=== PATIENT | female | born 1940 | race Hispanic/Latino ===

== ENCOUNTER 2020-06-25 19:42 | Inpatient (IN) | payer MEDICARE, OTHER ==
[~2020-06-25] VITALS: Ht 152.4 cm; Wt 74.4 kg
--- NOTE | 2020-06-25 20:01 | Emergency Department Note ---
History of Present Illnes History of Present Illness Chief Complaint: Chest Pain History of Present Illness This is a 80 year old female with CP that started this AM which had progressive ly worsened. CP radiates to l shoulder and jaw . Historian: Patient Arrival Mode: Car Onset (how long ago): day(s) (1) Severity: moderate Duration (how long): day(s) Timing of current episode: constant Progression: worsening Relieving factors: none Exacerbating factors: none Associated symptoms: Reports chest pain Treatments prior to arrival: none Past Medical/Family History Physician Review I have reviewed the patient's past medical and family history. Any updates have been documented here. Past Medical History Recent Fever: No Clinical Suspicion of Infectio: No New/Unexplained Change in Ment: No Past Medical History: Hypertension, Diabetes Social History Smoking Cessation: Never Smoker Alcohol Use: None Any Illegal Drug Use: No Review of Systems Review of Systems Constitutional: Reports diaphoresis EENTM: Reports no symptoms Cardiovascular: Reports chest pain Respiratory: Reports dyspnea Gastrointestinal: Reports nausea, Reports vomiting Genitourinary: Reports no symptoms Musculoskeletal: Reports no symptoms Integumentary: Reports no symptoms Neurological: Reports no symptoms Psychological: Reports no symptoms Endocrine: Reports no symptoms Hematological/Lymphatic: Reports no symptoms Physical Exam Related Data Allergies: Coded Allergies: Penicillins (Verified Allergy, Intermediate, 06/25/20) Triage Vital Signs Vital Signs Date Time Temp Pulse Resp B/P (MAP) Pulse Ox O2 Delivery O2 Flow Rate FiO2 06/25/20 19:59 99.6 88 20 145/85 98 Room Air Vital signs reviewed: Yes Physical Exam CONSTITUTIONAL Constitutional: Present ill appearing HENT HENT: Present normocephalic, Present atraumatic, Present oropharynx clear/moist, Present nose normal HENT L/R: Present left ext ear normal, Present right ext ear normal EYES Eyes: Reports PERRL, Reports conjunctivae normal NECK Neck: Present ROM normal PULMONARY Pulmonary: Present effort normal, Present breath sounds normal CARDIOVASCULAR Cardiovascular: Present regular rhythm, Present heart sounds normal, Present capillary refill normal, Present normal rate GASTROINTESTINAL Abdominal: Present soft, Present nontender, Present bowel sounds normal GENITOURINARY Genitourinary: Present exam deferred SKIN Skin: Present warm, Present dry MUSCULOSKELETAL Musculoskeletal: Present ROM normal NEUROLOGICAL Neurological: Present alert, Present oriented x 3, Present no gross motor or sensory deficits PSYCHOLOGICAL Psychological: Present mood/affect normal, Present judgement normal Results Laboratory Lab results reviewed: Yes Laboratory comments Laboratory Tests Test 06/25/20 23:35 06/25/20 20:11 White Blood Count 8.33 x10e3/uL (4.8-10.8) Red Blood Count 4.31 x10e6/uL (3.6-5.1) Hemoglobin 12.1 g/dL (12.0-16.0) Hematocrit 35.1 % (34.2-44.1) Mean Corpuscular Volume 81.4 fL (81-99) Mean Corpuscular Hemoglobin 28.1 pg (28-32) Mean Corpuscular Hemoglobin Concent 34.5 g/dL (31-35) Red Cell Distribution Width 12.6 % (11.7-14.4) Platelet Count 359 x10e3/uL (140-360) Neutrophils (%) (Auto) 72.6 % (38.7-80.0) Lymphocytes (%) (Auto) 18.5 % (18.0-39.1) Monocytes (%) (Auto) 7.2 % (4.4-11.3) Eosinophils (%) (Auto) 1.1 % (0.0-6.0) Basophils (%) (Auto) 0.4 % (0.0-1.0) Neutrophils # (Auto) 6.1 (2.1-6.9) Lymphocytes # (Auto) 1.5 (1.0-3.2) Monocytes # (Auto) 0.6 (0.2-0.8) Eosinophils # (Auto) 0.1 (0.0-0.4) Basophils # (Auto) 0.0 (0.0-0.1) Absolute Immature Granulocyte (auto 0.02 x10e3/uL (0-0.1) Sodium Level 122 mmol/L (136-145) Potassium Level 4.1 mmol/L (3.5-5.1) Chloride Level 85 mmol/L (98-107) Carbon Dioxide Level 25 mmol/L (22-29) Anion Gap 16.1 mmol/L (8-16) Blood Urea Nitrogen 6 mg/dL (7-26) Creatinine 0.82 mg/dL (0.57-1.11) Estimat Glomerular Filtration Rate > 60 ML/MIN (60-) BUN/Creatinine Ratio 7 (6-25) Glucose Level 135 mg/dL (74-118) Calcium Level 9.1 mg/dL (8.4-10.2) Total Bilirubin 0.4 mg/dL (0.2-1.2) Aspartate Amino Transf (AST/SGOT) 16 IU/L (5-34) Alanine Aminotransferase (ALT/SGPT) 16 IU/L (0-55) Alkaline Phosphatase 80 IU/L (40-150) Creatine Kinase 153 IU/L (29-168) Creatine Kinase MB 4.00 ng/mL (0-5.0) Troponin I < 0.001 ng/mL (0-0.300) B-Type Natriuretic Peptide 17.4 pg/mL (0-100) Total Protein 7.5 g/dL (6.5-8.1) Albumin 4.0 g/dL (3.5-5.0) Globulin 3.5 g/dL (2.3-3.5) Albumin/Globulin Ratio 1.1 (0.8-2.0) Lipase 6 U/L (8-78) Imaging Imaging results reviewed: Yes Impressions [place] [address] Patient Name: DION QUIÑONEZ MR #: [id number] : 1940 Age/Sex: 80/F Req #: [id number] Adm Physician: Ordered by: ANUSHKA GOULD DO Report #: [id number] Location: ER Room/Bed: Procedure: [id number] CT/CT ABDOMEN/PELVIS W Exam Date: 06/25/20 Exam Time: 2148 REPORT STATUS: Signed EXAM: CT Abdomen and Pelvis WITH contrast INDICATION: ^abd pain COMPARISON: None. TECHNIQUE: Abdomen and pelvis were scanned utilizing a multidetector helical scanner from the lung base to the pubic symphysis after administration of IV contrast. Coronal and sagittal reformations were obtained. Routine protocol was performed. Scan was performed when during portal venous phase. IV CONTRAST: 100 mL of Isovue 370 ORAL CONTRAST: None COMPLICATIONS: None RADIATION DOSE: Total DLP: 519.12 mGy*cm Estimated effective dose: (DLP x 0.015 x size factor) mSv CTDIvol has been reviewed. It is below the limits set by the Radiation Protocol Committee (RPC). Dose modulation, iterative reconstruction, and/or weight based adjustment of the mA/kV was utilized to reduce the radiation dose to as low as reasonably achievable. FINDINGS: LINES and TUBES: None. LOWER THORAX: Unremarkable HEPATOBILIARY: Diffuse hypoattenuation of the liver relative to the spleen with more focal fatty infiltration at the falciform ligament. No biliary ductal dilation. GALLBLADDER: No radio-opaque stones or sludge. No wall thickening. SPLEEN: No splenomegaly. PANCREAS: No focal masses or ductal dilatation. ADRENALS: No adrenal nodules KIDNEYS/URETERS: Kidneys enhance symmetrically. No hydronephrosis. No cystic or solid mass lesions. No stones. GI TRACT: No abnormal distention, wall thickening, or evidence of bowel obstruction. Diverticulosis without evidence of acute diverticulitis. Appendix is normal. PELVIC ORGANS/BLADDER: No significant abnormality. LYMPH NODES: No lymphadenopathy. VESSELS: Unremarkable. PERITONEUM / RETROPERITONEUM: No free air or fluid. BONES: Unremarkable. SOFT TISSUES: Unremarkable. IMPRESSION: 1. No acute abdominopelvic process. 2. Hepatic steatosis. 3. Colonic diverticulosis without evidence of acute diverticulitis. Signed by: Ky Chow MD on 06/25/2020 10:25 PM Dictated By: KY CHOW MD 24 Transcribed By: VARSHA on 06/25/202224 COPY TO: ANUSHKA GOULD DO~ [place] [address] Patient Name: DION QUIÑONEZ MR #: [id number] : 1940 Age/Sex: 80/F Req #: [id number] Adm Physician: Ordered by: ANUSHKA GOULD DO Report #: [id number] Location: ER Room/Bed: Procedure: [id number] DX/CHEST SINGLE (PORTABLE) Exam Date: 06/25/20 Exam Time: 2029 REPORT STATUS: Signed EXAMINATION: CHEST SINGLE (PORTABLE) INDICATION: Chest pain COMPARISON: None FINDINGS: TUBES and LINES: None. LUNGS: Normal lung volumes. Lungs are clear. No consolidations. Bibasilar atelectasis. PLEURA: No pleural effusion or pneumothorax. HEART AND MEDIASTINUM: The cardiomediastinal silhouette is within normal limits with atherosclerotic calcification of the thoracic aortic knob. BONES AND SOFT TISSUES: No acute osseous lesion. Soft tissues are unremarkable. UPPER ABDOMEN: No free air under the diaphragm. IMPRESSION: No acute thoracic radiographic abnormality. Signed by: Enio Orourke MD on 06/25/2020 9:30 PM Dictated By: ENIO OROURKE MD 29 Transcribed By: VARSHA on 06/25/202129 COPY TO: ANUSHKA GOULD DO~ Procedures 12 Lead ECG Interpretation ECG Interpretation : ECG: ECG 1 Hammer Smith: Interpreted by ED physician Date: Jun 25, 2020 Time: 20:19 Prior ECG tracings: reviewed Rhythm: sinus rhythm Rate: normal BPM: 82 QRS axis: normal ST segment flattening: I, II, III T waves normal: Yes Clinical Impression: non-specific ECG Assessment & Plan Medical Decision Making MDM 80 yof presents with CP and epigastric pain. Diff Dx : PE, PTX, ACS, Costocondritis, pancreatitis, biliary pathology Assessment & Plan Final Impression: (1) Chest pain (2) Hyponatremia Depart Disposition: ADMITTED Home Meds Reported Medications Pantoprazole Sodium* (PROTONIX) 40 Mg Tablet.dr, 40 MG PO DAILY, TAB 06/26/20 Metformin Hcl (METFORMIN HCL) 500 Mg Tablet, 1000 MG PO BID, #60 TAB 06/26/20 Losartan Potassium (LOSARTAN POTASSIUM) 100 Mg Tablet, 100 MG PO DAILY, TAB 06/26/20 Amlodipine Besylate (AMLODIPINE BESYLATE) 10 Mg Tablet, 10 MG PO DAILY, #30 TAB 06/26/20 Simvastatin (SIMVASTATIN) 40 Mg Tablet, 40 MG PO 2100, #30 TAB 06/26/20 Omeprazole (OMEPRAZOLE) 40 Mg Capsule.dr, 20 MG PO QAM 06/26/20 Ondansetron Hcl (ZOFRAN) 8 Mg Tablet, 8 MG PO Q4HR PRN for NAUSEA 06/26/20 ANUSHKA GOULD DO Jun 25, 2020 20:01
[2020-06-25] MEDS ORDERED: ASPIRIN 81 MG CHEW TAB PO ONE ×2 (20:15→22:45)
[2020-06-25 20:35] LABS: BASOPHILS % 0.4 % (0.0-1.0); EOSINOPHILS # (AUTO) 0.1 (0.0-0.4); EOSINOPHILS % 1.1 % (0.0-6.0); HEMATOCRIT 35.1 % (34.2-44.1); HEMOGLOBIN 12.1 g/dL (12.0-16.0); LYMPHOCYTES # (AUTO) 1.5 (1.0-3.2); LYMPHOCYTES % 18.5 % (18.0-39.1); MEAN CORPUSCULAR HEMOGLOBIN 28.1 pg (28-32); MEAN CORPUSCULAR HGB CONC 34.5 g/dL (31-35); MEAN CORPUSCULAR VOLUME 81.4 fL (81-99); MONOCYTES # (AUTO) 0.6 (0.2-0.8); MONOCYTES % 7.2 % (4.4-11.3); NEUTROPHILS # (AUTO) 6.1 (2.1-6.9); NEUTROPHILS % 72.6 % (38.7-80.0); PLATELET COUNT 359 x10e3/uL (140-360); RED BLOOD COUNT 4.31 x10e6/uL (3.6-5.1); RED CELL DISTRIBUTION WIDTH 12.6 % (11.7-14.4)
[2020-06-25 20:50] LABS: ALANINE AMINOTRANSFERASE 16 IU/L (0-55); ALBUMIN/GLOBULIN RATIO 1.1 (0.8-2.0); ALKALINE PHOSPHATASE 80 IU/L (40-150); ANION GAP 16.1 mmol/L (8-16); BLOOD UREA NITROGEN 6 mg/dL (7-26); BUN/CREATININE RATIO 7 (6-25); CALCIUM 9.1 mg/dL (8.4-10.2); CARBON DIOXIDE 25 mmol/L (22-29); CHLORIDE 85 mmol/L (98-107); CREATINE KINASE 153 IU/L (29-168); CREATININE, SERUM 0.82 mg/dL (0.57-1.11); EST GLOMERULAR FILTRATION RATE > 60 ML/MIN (60-); GLUCOSE 135 mg/dL (74-118); POTASSIUM 4.1 mmol/L (3.5-5.1); SODIUM 122 mmol/L (136-145)
--- NOTE | 2020-06-25 21:33 | Diagnostic Imaging Report ---
EXAMINATION: CHEST SINGLE (PORTABLE) INDICATION: Chest pain COMPARISON: None FINDINGS: TUBES and LINES: None. LUNGS: Normal lung volumes. Lungs are clear. No consolidations. Bibasilar atelectasis. PLEURA: No pleural effusion or pneumothorax. HEART AND MEDIASTINUM: The cardiomediastinal silhouette is within normal limits with atherosclerotic calcification of the thoracic aortic knob. BONES AND SOFT TISSUES: No acute osseous lesion. Soft tissues are unremarkable. UPPER ABDOMEN: No free air under the diaphragm. IMPRESSION: No acute thoracic radiographic abnormality. Signed by: Tran Hannah MD on 06/25/2020 9:30 PM
[2020-06-25] MEDS ORDERED: IOPAMIDOL 370 MG/ML 200 ML INFUS..BTL INJ ONE (22:16)
[2020-06-25] MEDS ORDERED: SODIUM CHLORIDE 0.9% 50ML 50 ML ONE (22:16)
--- NOTE | 2020-06-25 22:29 | Diagnostic Imaging Report ---
EXAM: CT Abdomen and Pelvis WITH contrast INDICATION: ^abd pain COMPARISON: None. TECHNIQUE: Abdomen and pelvis were scanned utilizing a multidetector helical scanner from the lung base to the pubic symphysis after administration of IV contrast. Coronal and sagittal reformations were obtained. Routine protocol was performed. Scan was performed when during portal venous phase. IV CONTRAST: 100 mL of Isovue 370 ORAL CONTRAST: None COMPLICATIONS: None RADIATION DOSE: Total DLP: 519.12 mGy*cm Estimated effective dose: (DLP x 0.015 x size factor) mSv CTDIvol has been reviewed. It is below the limits set by the Radiation Protocol Committee (RPC). Dose modulation, iterative reconstruction, and/or weight based adjustment of the mA/kV was utilized to reduce the radiation dose to as low as reasonably achievable. FINDINGS: LINES and TUBES: None. LOWER THORAX: Unremarkable HEPATOBILIARY: Diffuse hypoattenuation of the liver relative to the spleen with more focal fatty infiltration at the falciform ligament. No biliary ductal dilation. GALLBLADDER: No radio-opaque stones or sludge. No wall thickening. SPLEEN: No splenomegaly. PANCREAS: No focal masses or ductal dilatation. ADRENALS: No adrenal nodules KIDNEYS/URETERS: Kidneys enhance symmetrically. No hydronephrosis. No cystic or solid mass lesions. No stones. GI TRACT: No abnormal distention, wall thickening, or evidence of bowel obstruction. Diverticulosis without evidence of acute diverticulitis. Appendix is normal. PELVIC ORGANS/BLADDER: No significant abnormality. LYMPH NODES: No lymphadenopathy. VESSELS: Unremarkable. PERITONEUM / RETROPERITONEUM: No free air or fluid. BONES: Unremarkable. SOFT TISSUES: Unremarkable. IMPRESSION: 1. No acute abdominopelvic process. 2. Hepatic steatosis. 3. Colonic diverticulosis without evidence of acute diverticulitis. Signed by: Baron Monroy MD on 06/25/2020 10:25 PM
--- OUTSIDE RECORDS SUMMARY | 2020-06-25 22:37 | XMS REPORT | Clinical Summary ---
Author Author [facility] Organization [facility] Address Unknown Phone Unavailable Care Team Providers Care [employer] Supervisor Name Role Phone PCP Unavailable Allergies Comments Active Allergy Reactions Severity Noted Date Penicillin Rash, 09/05/2016 Swelling Medications End Date Status Medication Sig Dispensed Refills Start Date Active gabapentin (NEURONTIN) Take 1 Cap by 30 Cap 0 0 300 mg mouth daily 1 capsuleIndications: before a Neuropathic pain, Renal meal. colic Active ibuprofen (MOTRIN) 800 mg Take 1 tablet 30 tablet 0 tabletIndications: Pain, by mouth 6 dental every 8 hours as needed for Pain (take with food). Active Problems Problem Noted Date Mass on back 11/29/2017 Immunizations Name Administration Dates Next Due Influenza Vaccine 09/05/2016 (Deferred: Other ) Pneumococcal 13-valent 09/05/2016 (Deferred: Other ) conj 0.5 mL injection Social History Date Tobacco Use Types Packs/Day Years Used Never Smoker Drinks/Week oz/Week Comments Alcohol Use No Sex Assigned at Date Recorded Not on file Industry Job Start Date Occupation Not on file Not on file Not on file Travel End Travel History Travel Start No recent travel history available. Last Filed Vital Signs Not on file Plan of Treatment Health Maintenance Due Date Last Done Comments IMM Pneumococcal Age 65 2006 and Up IMM Influenza Seasonal 08/02/2020Aug to December (>/= 19 yrs) Results Not on fileafter 06/25/2019 Insurance Type Payer Benefit Subscriber ID Effective Phone Address Plan / Dates Group MEDICARE MEDICARE xxxxxxxxxxx 2011-P [id number] [place] [address] [employer] MEDICARE OPTIONS ROMERO xxxxxxxxxxxx 2015-P [employer] HMO DUAL resent [id number] [employer] [address] [address] [place] [address] (Work)
--- OUTSIDE RECORDS SUMMARY | 2020-06-25 22:38 | XMS REPORT | Continuity of Care Document ---
Author Author [facility] t Organization [facility] t Address [address] [place] [address] Phone Unavailable Care Team Providers Care Shell Worker Name Role Phone MD Alysia FERNÁNDEZ PCP ANUSHKA GOULD Attphys Unavailable Petra MATHIS Attphys Unavailable Jose MATTHEWS Attphys Unavailable Payers Payer Name Policy Type Policy Number Effective Date Expiration Date S sangeeta Plasencia Medicare [id number] 2015 00:00:00 [facility] [employer] [id number] 2015 00:00:00 [facility] Problems Condition Name Condition Details Condition Category Status Onset Date Resolution Date Last Treatment Date Treating Clinician Comments Source Mass on back Mass on back Disease Active 2017-11-29 00:00:00 [facility] Neuropathy Problem Active [facility] Gastritis Problem Active [facility] Abdominal pain Problem Active [facility] Hyponatremia Problem Active [facility] Diarrhea Problem Active [facility] Allergies, Adverse Reactions, Alerts Allergy Name Allergy Type Status Severity Reaction(s) Onset Date Inacti ve Date Treating Clinician Comments Source influenza virus vaccine, specific Allergy to substance Active 2020-06-23 00:00:00 [facility] FLU SHOT Allergy to substance Active 2020-06-23 00:00:00 [facility] Penicillin Allergy to substance Active Moderate 2020-05-15 00:00:0 0 [facility] Penicillin Propensity to adverse reactions to drug Active Rash, Swelling 2016-09-05 00:00:00 Julian mclaughlin Social History Social Habit Start Date Stop Date Quantity Comments Source Sex Assigned At [facility] Alcohol intake 2016-09-05 00:00:00 2016-09-05 00:00:00 Current non-drinker of alcohol (finding) [facility] Smoking Status Start Date Stop Date Source Never smoker [facility] Medications Ordered Medication Name Filled Medication Name Start Date Stop Da te Current Medication? Ordering Clinician Indication Dosage Frequency Signature (SIG) Comments Components Source Lidocaine/Menthol (Lidopatch) 1 Each ADH..PATCH Lidoca ine/Menthol (Lidopatch) 1 Each ADH..PATCH 2020-06-23 20:16:00 Yes 1 Daily [facility] Sulfamethoxazole/Trimethoprim (Bactrim Ds Tablet) 1 Ea ch TABLET Sulfamethoxazole/Trimethoprim (Bactrim Ds Tablet) 1 Each TABLET 2020-06-23 20:16:00 Yes 1 Twice A Day [facility] Tramadol Hcl (Ultram) 50 Mg TABLET Tramadol Hcl (Ultram) 50 Mg TABLET 2020-06-23 20:16:00 Yes 50 Every 6 Ho urs as needed for Mild Pain (1-3) Or Fever>100.8 [facility] ibuprofen (MOTRIN) 800 mg tablet 2016-09-05 00:00:00 Yes Pain, dental 800mg Take 1 tablet by mouth every 8 hours as needed for Pain (take with food). [facility] gabapentin (NEURONTIN) 300 mg capsule 2011-06-16 00:00:00 Yes Renal colic 300mg Take 1 Cap by mouth daily before a meal. [facility] Amlodipine Besylate (Norvasc) 10 Mg TAB Amlodipine Besylate (Norvasc) 10 Mg TAB Yes 10 Daily [facility] Clonidine Hcl Clonidine Hcl Yes 1 Bedtime [facility] Diphenhydramine Hcl (Benadryl) 25 Mg CAPSULE Diphenhyd ramine Hcl (Benadryl) 25 Mg CAPSULE Yes as needed for Allergy [facility] Loperamide Hcl (Loperamide) 2 Mg TABLET Loperamide Hcl (Erlinda ramide) 2 Mg TABLET Yes 2 Every 6 Hours as needed for Fina rrhea [facility] Loratadine Loratadine Yes 10 Daily [facility] Losartan Potassium Losartan Potassium Yes 12.5 Da elizabeth [facility] Metformin Hcl Metformin Hcl Yes 1000 [facility] Omeprazole Omeprazole Yes 20 Daily [facility] Simvastatin Simvastatin Yes 40 Bedtime [facility] Levofloxacin Levofloxacin 2020-06-16 00:00:00 No 500 Daily [facility] Apixaban (Eliquis) 2.5 Mg TABLET Apixaban (Eliquis) 2.5 Mg TABLE T 2020-06-15 00:00:00 No [facility] Metoprolol Tartrate (Lopressor) 25 Mg TAB Metoprolol T artrate (Lopressor) 25 Mg TAB 2020-06-15 00:00:00 No Daily [facility] Vital Signs Vital Name Observation Time Observation Value Comments Source Weight 2020-06-23 17:08:00 160 [lb_av] [facility] BMI (Body Mass Index) 2020-06-23 17:08:00 26.6 kg/m2 [facility] Body Temperature 2020-06-17 15:57:00 98.1 [degF] [facility] Weight 2020-06-09 21:35:00 168 [lb_av] [facility] BMI (Body Mass Index) 2020-06-09 21:35:00 32.8 kg/m2 [facility] Body Temperature 2020-05-15 01:33:00 98.4 [degF] [facility] Weight 2020-05-14 23:56:00 168 [lb_av] [facility] BMI (Body Mass Index) 2020-05-14 23:56:00 32.8 kg/m2 [facility] Procedures Procedure Date / Time Performed Performing Clinician [facility] e Computed tomography of abdomen and pelvis with contrast 00:00:00 [facility] Computed tomography of abdomen and pelvis with contrast 00:00:00 [facility] US Gallbladder 2020-06-09 00:00:00 [facility] Computed tomography of brain without radiopaque contrast 2020-05 00:00:00 [facility] Plan of Care Planned Activity Planned Date Details Comments Source Future Scheduled Test 2020-08-02 00:00:00 IMM Influenza Seas onal Aug to December (>/= 19 yrs) [code = IMM Influenza Seasonal Aug to December (>/= 19 yrs)] [facility] Future Scheduled Test 2006 00:00:00 IMM Pneumococcal A ge 65 and Up [code = IMM Pneumococcal Age 65 and Up] [facility] Instructions Back Pain [facility] Instructions Urinary Tract Infection - Women [facility] Encounters Start Date/Time End Date/Time Encounter Type Admission Type [facility] Care Department Encounter ID Source 2020-06-23 17:15:00 2020-06-23 17:15:00 Registered Emergency Room 1 MARSHALLNICKI [facility] [id number] [facility] 2020-06-14 12:00:00 2020-06-17 18:20:00 Discharged Inpatient [facility] [id number] [facility] 2020-06-09 21:49:00 2020-06-09 23:58:00 Departed Emergency Room JESUS MATTHEWS [facility] [id number] [facility] 2020-05-15 01:00:00 2020-05-15 01:45:00 Departed Emergency Room DEL [facility] [id number] [facility] 2019-08-30 10:36:00 2019-08-30 10:36:00 Emergency [facility] [id number] [facility] 2018-10-22 20:09:2018-10-22 20:09:00 Emergency E [facility] [id number] [facility] 2017-11-29 17:12:18 2017-11-29 17:12:18 Emergency [facility] [id number] [facility] Results Test Description Test Time Test Comments Results Result Comments Source CT ABDOMEN/PELVIS W 2020-06-25 22:07:00 [place] [address] Patient Name: DION QUIÑONEZ MR #: [id number] : 1940 Age/Sex: 80/F Req #: [id number] Adm Physician: Ordered by: ANUSHKA GOULD DO Report #: [id number] Location: ER Room/Bed: Procedure: [id number] CT/CT ABDOMEN/PELVIS W Exam Date: 06/25/20 Exam Time: 2148 REPORT STATUS: Signed EXAM: CT Abdomen and Pelvis WITH contrast INDICATION: abd pain COMPARISON: None. TECHNIQUE: Abdomen and pelvis were scanned utilizing a multidetector helical scanner from the lung base to the pubic symphysis after administration of IV contrast. Cor onal and sagittal reformations were obtained. Routine protocol was performed. Scan was performed when during portal venous phase. IV CONTRAST: 100 mL of Isovue 370 ORAL CONTRAST: None COMPLICATIONS: None RADIATION DOSE: Total DLP: 519.12 mGy*cm Estimated effective dose: (DLP x 0.015 x size factor) mSv CTDIvol has been reviewed. It is below the limits set by the Radiation Protocol Committee (RPC). Dose modulation, iterative reconstruction, and/or weight based adjustment of the mA/kV was utilized to reduce the radiation dose to as low as reasonably achievable. FINDINGS: LINES and TUBES: None. LOWER THORAX: Unremarkable HEPATOBILIARY: Diffuse hypoattenuation of the liver relative to the spleen with more focal fatty infiltration at the falciform ligament. No biliary ductal dilation. GALLBLADDER: No radio-opaque stones or sludge. No wall thickening. SPLEEN: No splenomegaly. PANCREAS: No focal masses or ductal dilatation. ADRENALS: No adrenal nodules KIDNEYS/URETERS: Kidneys enhance symmetrically. No hydronephrosis. No cystic or solid mass lesions. No stones. GI TRACT: No abnormal distention, wall thickening, or evidence of bowel obstruction. Diverticulosis without evidence of acute diverticulitis. Appendix is normal. PELVIC ORGANS/BLADDER: No significant abnormality. LYMPH NODES: No lymphadenopathy. VESSELS: Unremarkable. PERITONEUM / RETROPERITONEUM: No free air or fluid. BONES: Unremarkable. SOFT TISSUES: Unremarkable. IMPRESSION: 1. No acute abdominopelvic process. 2. Hepatic steatosis. 3. Colonic diverticulosis without evidence of acute diverticulitis. Signed by: Ky Monroy MD on 06/25/2020 10:25 PM Dictated By: KY MONROY MD 24 Transcribed By: VARSHA on 06/25/202224 COPY TO: ANUSHKA GOULD DO CHEST SINGLE (PORTABLE) 2020-06-25 21:22:00 [place] [address] Patient Name: DION QUIÑONEZ MR #: [id number] : 1940 Age/Sex: 80/F Req #: [id number] Adm Physician: Ordered by: ANUSHKA GOULD DO Report #: [id number] Location: ER Room/Bed: Procedure: [id number] DX/CHEST SINGLE (PORTABLE) Exam Date: 06/25/20 Exam Time: 2029 REPORT STATUS: Signed EXAMINATION: CHEST SINGLE (PORTABLE) INDICATION: Chest pain COMPARISON: None FINDINGS: TUBES and LINES: None. LUNGS: Normal lung volumes. Lungs are clear. No consolidations. Bibasilar atelectasis. PLEURA: No pleural effusion or pneumothorax. HEART AND MEDIASTINUM: The cardiomediastinal silhouette is within normal limits with atherosclerotic calcification of the thoracic aortic knob. BONES AND SOFT TISSUES: No acute osseous lesion. Soft tissues are unremarkable. UPPER ABDOMEN: No free air under the diaphragm. IMPRESSION: No acute thoracic radiographic abnormality. Signed by: Enio Orourke MD on 06/25/2020 9:30 PM Dictated By: ENIO OROURKE MD 29 Transcribed By: VARSHA on 06/25/202129 COPY TO: ANUSHKA GOULD DO CT ABDOMEN/PELVIS W 2020-06-23 19:45:00 [place] [address] Patient Name: DION QUIÑONEZ MR #: [id number] : 1940 Age/Sex: 80/F Req #: [id number] Adm Physician: Ordered by: KRISTIE MATHIS DO Report #: [id number] Location: ER Room/Bed: Procedure: [id number] CT/CT ABDOMEN/PELVIS W Exam Date: 06/23/20 Exam Time: 1852 REPORT STATUS: Signed EXAM: CT Abdomen and Pelvis WITH contrast INDICATION: Right upper quadrant pain COMPARISON: Abdominal CT 06/14/2020 TECHNIQUE: Abdomen and pelvis were scanned utilizing a multidetector helical scanner from the lung base to the pubic symphysis after administration of IV contrast. Coronal and sagittal reformations were obtained. Routine protocol was performed. Scan was performed when during portal venous phase. IV CONTRAST: 100 mL of Isovue 370 ORAL CONTRAST: None COMPLICATIONS: None RADIATION DOSE: Total DLP: 556 mGy*cm Estimated effective dose: (DLP x 0.015 x size factor) mSv CTDIvol has been reviewed. It is below the limits set by the Radiation Protocol Committee (RPC). Dose modulation, iterative reconstruction, and/or weight based adjustment of the mA/kV was utilized to reduce the radiation dose to as low as reasonably achievable. FINDINGS: LINES and TUBES: None. LOWER THORAX: Mitral annular calcifications. HEPATOBILIARY: No focal hepatic lesions. No biliary ductal dilation. GALLBLADDER: No radio-opaque stones or sludge. No wall thickening. SPLEEN: No splenomegaly. PANCREAS: No focal masses or ductal dilatation. ADRENALS: No adrenal nodules KIDNEYS/URETERS: Kidneys enhance symmetrically. No hydronephrosis. No cystic or solid mass lesions. No stones. GI TRACT: No abnormal distention, wall thickening, or evidence of bowel obstruction. Appendix is normal. Colonic diverticuli. Small sliding gastric hiatal hernia. PELVIC ORGANS/BLADDER: Hysterectomy. No adnexal masses. Urinary bladder unremarkable. LYMPH NODES: No lymphadenopathy. VESSELS: Arterial calcifications and plaques. PERITONEUM / RETROPERITONEUM: No free air or fluid. BONES: Degenerative changes. SOFT TISSUES: A 0.9 cm calcified nodule in the right breast.. IMPRESSION: 1. Small sliding gastric hiatal hernia. 2. Colonic diverticulosis without diverticulitis. 3. A 0.9 cm calcified nodule in the right breast. Recommend referral to dedicated breast imaging center. Signed by: Alan Oneal DO on 06/23/2020 7:50 PM Dictated By: ALAN ONEAL DO 49 Transcribed By: VARSAH on 06/23/201949 COPY TO: KRISTIE MATHIS DO CHEST SINGLE (PORTABLE) 2020-06-23 18:45:00 [place] [address] Patient Name: DION QUIÑONEZ MR #: [id number] : 1940 Age/Sex: 80/F Req #: [id number] Adm Physician: Ordered by: LAMONTE SANTOS MD Report #: [id number] Location: ER Room/Bed: Procedure: [id number] DX/CHEST SINGLE (PORTABLE) Exam Date: 06/23/20 Exam Time: 1755 REPORT STATUS: Signed EXAMINATION: CHEST SINGLE (PORTABLE) INDICATION: ACHY ALL OVER COMPARISON: Chest radiograph 06-14-2020. FINDINGS: TUBES and LINES: None. LUNGS: Lungs are well inflated. Mild patchy bibasilar opacities. No evidence of lobar consolidation or pulmonary edema. PLEURA: No pleural effusion or pneumothorax. HEART AND MEDIASTINUM: The cardiomediastinal silhouette is unremarkable. There are atherosclerotic calcifications within the aorta. BONES AND SOFT TISSUES: No acute osseous lesion. Soft tissues are unremarkable. UPPER ABDOMEN: No free air under the diaphragm. IMPRESSION: Mild patchy bibasilar opacities, more likely atelectasis than infection. No evidence of lobar pneumonia. Signed by: Dr. Nadja Beth MD on 06/23/2020 6:47 PM Dictated By: NADJA BETH MD 46 Transcribed By: VARSHA on 06/23/201846 COPY TO: LAMONTE SANTOS MD Blood leukocytes automated count (number/volume) 2020-06-23 17:30:00 Test Item White Blood Count (test code = 6690-2) 8.43 4.8-10.8 [facility] count (number/volume)2020-06-23 17:30:00* Test Item Value Reference Range Interpretation Comments Red Blood Count (test code = 789-8) 4.17 3.6-5.1 [facility] measurement (moles/volume)2020-06-23 17:30:00* Test Item Value Reference Range Interpretation Comments Hemoglobin (test code = 44619-1) 11.9 12.0-16.0 [facility] HospitalAutom[facility] blood hematocrit (volume fraction)2020-06-23 17:30:00* Test Item Value Reference Range Interpretation Comments Hematocrit (test code = 4544-3) 35.0 34.2-44.1 [facility] HospitalAutomated erythrocyte mean corpuscular [id number] 17:30:00* Test Item Value Reference Range Interpretation Comments Mean Corpuscular Volume (test code = 787-2) 83.9 81-99 [facility] HospitalAutom[facility] erythrocyte mean corpuscular hemoglobin (mass per erythrocyte)2020-06-23 17:30:00* Test Item Value Reference Range Interpretation Comments Mean Corpuscular Hemoglobin (test code = 785-6) 28.5 28-32 [facility] HospitalAutom[facility] erythrocyte mean corpuscular hemoglobin concentration measurement (mass/volume)2020-06-23 17:30:00* Test Item Value Reference Range Interpretation Comments Mean Corpuscular Hemoglobin Concent (test code = 786-4) 34.0 31-35 [facility] HospitalRDW EmxHe-[id number] 17:30:00* Test Item Value Reference Range Interpretation Comments Red Cell Distribution Width (test code = 40219-3) 12.7 11.7 -14.4 [facility] HospitalAutom[facility] blood platelet count (count/volume)2020-06-23 17:30:00* Test Item Value Reference Range Interpretation Comments Platelet Count (test code = 777-3) 341 140-360 [facility] HospitalAutomated blood segmented neutrophil count as percentage of total [id number] 17:30:00* Test Item Value Reference Range Interpretation Comments Neutrophils (%) (Auto) (test code = 76413-9) 70.7 38.7-80.0 [facility] HospitalAutomated blood lymphocyte count as percentage ot total [id number] 17:30:00* Test Item Value Reference Range Interpretation Comments Lymphocytes (%) (Auto) (test code = 736-9) 19.7 18.0-39.1 [facility] HospitalAutomated blood monocyte count as percentage of total ohcoksjggr0223-80-76 17:30:00* Test Item Value Reference Range Interpretation Comments Monocytes (%) (Auto) (test code = 5905-5) 6.9 4.4-11.3 [facility] HospitalAutomated blood eosinophil count as percentage of total betrtnesnc6385-92-09 17:30:00* Test Item Value Reference Range Interpretation Comments Eosinophils (%) (Auto) (test code = 713-8) 1.4 0.0-6.0 [facility] HospitalAutatrium healthed blood basophil count as percentage of total vtpxduuhfj1373-79-68 17:30:00* Test Item Value Reference Range Interpretation Comments Basophils (%) (Auto) (test code = 706-2) 0.5 0.0-1.0 [facility] HospitalFluoroscopic procedure less than one hour [id number] 17:30:00* Test Item Value Reference Range Interpretation Comments IM GRANULOCYTES % (test code = IM GRANULOCYTES %) 0.8 0.0- 1.0 [facility] HospitalAutatrium healthed blood neutrophil count 2020-06-23 17:30:00* Test Item Value Reference Range Interpretation Comments Neutrophils # (Auto) (test code = 751-8) 6.0 2.1-6.9 [facility]Blood lymphocytes count (number/volume) 2020-06-23 17:30:00* Test Item Value Reference Range Interpretation Comments Lymphocytes # (Auto) (test code = 02408-9) 1.7 1.0-3.2 [facility] HospitalBlood monocytes automated count (number/volume)2020-06-23 17:30:00* Test Item Value Reference Range Interpretation Comments Monocytes # (Auto) (test code = 742-7) 0.6 0.2-0.8 [facility] HospitalAutomated blood eosinophil count 2020-06-23 17:30:00* Test Item Value Reference Range Interpretation Comments Eosinophils # (Auto) (test code = 711-2) 0.1 0.0-0.4 [facility] (count/volume)2020-06-23 17:30:00* Test Item Value Reference Range Interpretation Comments Basophils # (Auto) (test code = 704-7) 0.0 0.0-0.1 [facility] HospitalFluoroscopic procedure less than one hour [id number] 17:30:00* Test Item Value Reference Range Interpretation Comments Absolute Immature Granulocyte (auto (cristobal t code = Absolute Immature Granulocyte (auto) 0.07 0-0.1 [facility] HospitalProthrombin time (PT) in platelet poor plasma by coagulation [id number] 17:30:00* Test Item Value Reference Range Interpretation Comments Prothrombin Time (test code = 5902-2) 12.7 11.9-14.5 [facility] HospitalINR in Platelet poor plasma by Coagulation [id number] 17:30:00* Test Item Value Reference Range Interpretation Comments Prothromb Time International Ratio (test code = 6301-6) 0.91 Oral Anticoagulant Therapy INR Values:1. Low Intensity Therapy 1.5 - 2.02 . Moderate Intensity Therapy 2.0 - 3.03. High Intensity Therapy(1) 2.5 - 3. 54. High Intensity Therapy(2) 3.0 - 4.05. Panic Value INR > 5.0 [facility] HospitalActivated partial thromboplastin time (aPTT) in platelet poor plasma by coagulation [id number] 17:30:00* Test Item Value Reference Range Interpretation Comments Activated Partial Thromboplast Time (test code = 00625-5) 29.9 23.8-35.5 [facility] HospitalUrine color [id number] 17:30:00* Test Item Value Reference Range Interpretation Comments Urine Color (test code = 5778-6) COLORLESS YELLOW [facility] HospitalUrine [id number] 17:30:00* Test Item Value Reference Range Interpretation Comments Urine Clarity (test code = 96120-9) CLEAR CLEAR [facility] by Test strip 2020-06-23 17:30:00* Test Item Value Reference Range Interpretation Comments Urine Specific [place] (test code = 5811-5) 1.020 1.010-1.02 5 [facility] HospitalUrine pH measurement by automated test [id number] 17:30:00* Test Item Value Reference Range Interpretation Comments Urine pH (test code = 53234-4) 7.5 5-7 [facility] HospitalUrine leukocyte esterase detection by lzjzbrxy4616-62-19 17:30:00* Test Item Value Reference Range Interpretation Comments Urine Leukocyte Esterase (test code = 5799-2) NEGATIVE NEGATIVE [facility] HospitalUrine nitrite mmzhgltmb8687-39-39 17:30:00* Test Item Value Reference Range Interpretation Comments Urine Nitrite (test code = 77986-8) NEGATIVE NEGATIVE [facility] HospitalUrine protein measurement by test strip (mass/volume)2020-06-23 17:30:00* Test Item Value Reference Range Interpretation Comments Urine Protein (test code = 5804-0) NEGATIVE NEGATIVE [facility] HospitalUrine glucose fiisnkxdf3127-33-87 17:30:00* Test Item Value Reference Range Interpretation Comments Urine Glucose (UA) (test code = 2349-9) NEGATIVE NEGATIVE [facility] HospitalUrine ketones detection by automated test [id number] 17:30:00* Test Item Value Reference Range Interpretation Comments Urine Ketones (test code = 45384-7) NEGATIVE NEGATIVE [facility] HospitalUrine urobilinogen measurement by test strip (mass/volume)2020-06-23 17:30:00* Test Item Value Reference Range Interpretation Comments Urine Urobilinogen (test code = 77663-0) 0.2 0.2-1 [facility] HospitalUrine total bilirubin measurement (mass/volume)2020-06-23 17:30:00* Test Item Value Reference Range Interpretation Comments Urine Bilirubin (test code = 1978-6) NEGATIVE NEGATIVE [facility] HospitalUrine erythrocytes [id number] 17:30:00* Test Item Value Reference Range Interpretation Comments Urine Blood (test code = 50187-4) SMALL NEGATIVE [facility] HospitalAutomated urine sediment leukocyte count by microscopy (number/high power field)2020-06-23 17:30:00* Test Item Value Reference Range Interpretation Comments Urine WBC (test code = 5821-4) 11-20 0-5 [facility] HospitalErythrocytes detection in urine sediment by light [id number] 17:30:00* Test Item Value Reference Range Interpretation Comments Urine RBC (test code = 70826-5) 11-20 0-5 [facility] HospitalBacteria detection in urine sediment by light [id number] 17:30:00* Test Item Value Reference Range Interpretation Comments Urine Bacteria (test code = 78397-4) MODERATE NONE [facility] HospitalEpithelial cells detection in urine sediment by light [id number] 17:30:00* Test Item Value Reference Range Interpretation Comments Urine Epithelial Cells (test code = 15741-1) MODERATE NONE [facility]um or plasma sodium measurement (moles/volume)2020-06-23 17:30:00* Test Item Value Reference Range Interpretation Comments Sodium Level (test code = 2951-2) 126 136-145 [facility]erum or plasma potassium measurement (moles/volume)2020-06-23 17:30:00* Test Item Value Reference Range Interpretation Comments Potassium Level (test code = 2823-3) 4.3 3.5-5.1 [facility] chloride [facility] (moles/volume)2020-06-23 17:30:00* Test Item Value Reference Range Interpretation Comments Chloride Level (test code = 2075-0) 87 98-107 [facility] carbon dioxide, total measurement (moles/volume)2020-06-23 17:30:00* Test Item Value Reference Range Interpretation Comments Carbon Dioxide Level (test code = 2028-9) 26 22-29 [facility] anion qhb4766-84-98 17:30:00* Test Item Value Reference Range Interpretation Comments Anion Gap (test code = 41879-9) 17.3 8-16 [facility] urea nitrogen measurement (mass/volume)2020-06-23 17:30:00* Test Item Value Reference Range Interpretation Comments Blood Urea Nitrogen (test code = 3094-0) 8 7-26 [facility] creatinine measurement (mass/volume)2020-06-23 17:30:00* Test Item Value Reference Range Interpretation Comments Creatinine (test code = 2160-0) 0.84 0.57-1.11 [facility] urea nitrogen/creatinine mass ktioa3573-03-46 17:30:00* Test Item Value Reference Range Interpretation Comments BUN/Creatinine Ratio (test code = 3097-3) 10 6-25 [facility] HospitalEstimated glomerular filtration rate (GFR) gjkwdmdglizpi7713-42-76 17:30:00* Test Item Value Reference Range Interpretation Comments Estimat Glomerular Filtration Rate (test code = 980212450) > 60 >60 Ranges were taken from the National Kidney Disease Education Program and the [facility] literature.Reference ranges:60 or greater: Lxmrai99-35 ( for 3 consecutive months): Chronic kidney disease 15 or less: Kidney failureMem[facility] HospitalGlucose epxjargzykh4330-40-93 17:30:00* Test Item Value Reference Range Interpretation Comments Glucose Level (test code = LWM3454) 108 74-118 [facility] calcium measurement (mass/volume)2020-06-23 17:30:00* Test Item Value Reference Range Interpretation Comments Calcium Level (test code = 72656-0) 9.3 8.4-10.2 [facility] magnesium measurement (mass/volume)2020-06-23 17:30:00* Test Item Value Reference Range Interpretation Comments Magnesium Level (test code = 26530-2) 1.8 1.3-2.1 [facility] total bilirubin measurement (mass/volume)2020-06-23 17:30:00* Test Item Value Reference Range Interpretation Comments Total Bilirubin (test code = 1975-2) 0.3 0.2-1.2 [facility] HospitalFluoroscopic procedure less than one hour gikvugui5110-04-77 17:30:00* Test Item Value Reference Range Interpretation Comments Aspartate Amino Transf (AST/SGOT) (test code = Aspartate Amino Transf (AST/SGOT)) 17 5-34 [facility] alanine aminotransferase measurement (enzymatic activity/volume)2020-06-23 17:30:00* Test Item Value Reference Range Interpretation Comments Alanine Aminotransferase (ALT/SGPT) (test code = 1742-6) 17 0-55 [facility] protein measurement (mass/volume)2020-06-23 17:30:00* Test Item Value Reference Range Interpretation Comments Total Protein (test code = 2885-2) 7.8 6.5-8.1 [facility] albumin measurement (mass/volume)2020-06-23 17:30:00* Test Item Value Reference Range Interpretation Comments Albumin (test code = 1751-7) 4.1 3.5-5.0 [facility] HospitalPlasma globulin measurement (mass/volume) 2020-06-23 17:30:00* Test Item Value Reference Range Interpretation Comments Globulin (test code = 78536-8) 3.7 2.3-3.5 [facility] albumin/globulin mass dqpbf1821-82-90 17:30:00* Test Item Value Reference Range Interpretation Comments Albumin/Globulin Ratio (test code = 1759-0) 1.1 0.8-2.0 [facility] alkaline phosphatase measurement (enzymatic activity/volume)2020-06-23 17:30:00* Test Item Value Reference Range Interpretation Comments Alkaline Phosphatase (test code = 6768-6) 94 40-150 [facility] creatine kinase measurement (enzymatic activity/volume)2020-06-23 17:30:00* Test Item Value Reference Range Interpretation Comments Creatine Kinase (test code = 2157-6) 125 29-168 [facility] plasma creatine kinase MB measurement (mass/volume)2020-06-23 17:30:00* Test Item Value Reference Range Interpretation Comments Creatine Kinase MB (test code = 61216-3) 2.80 0-5.0 [facility] HospitalTroponin I measurement by highly sensitive enzyme tuqbisbetro0131-87-41 17:30:00* Test Item Value Reference Range Interpretation Comments Troponin I (test code = 70625-1) 0.001 0-0.300 [facility] amylase measurement (enzymatic activity/volume)2020-06-23 17:30:00* Test Item Value Reference Range Interpretation Comments Amylase Level (test code = 1798-8) 144 25-125 [facility] lipase measurement (enzymatic activity/volume)2020-06-23 17:30:00* Test Item Value Reference Range Interpretation Comments Lipase (test code = 3040-3) 38 8-78 [facility] HospitalFluoroscopic procedure less than one hour sggpmvts1256-02-33 17:30:00* Test Item Value Reference Range Interpretation Comments Coronavirus (PCR) (test code = Coronavirus (PCR)) NOT DETECTED NOTD ETECTED SARS-COV2/RT-PCR CEPHEIDResults are for the detection of SARS-COV-2 RNA. The CULLEN S-COV-2 RNA is generally detectable in nasopharyngeal swab specimens during the acute phase of infection. Positive results are indicitive of active infection wi SARS-COV-2; clinical correlation with patient history and other diagnostic in formation is necessary to determine patient infection status. Positive results d o not rule out bacterial infection or co-infection with other viruses. The agent detected may not be the definite cause of the disease.The limit of detection for this assay is 250 copies/mLThe SARS-CoV-2 test is a rapid, real-time RT-PCR test intended for the qualitative detection of nucleic acid from SARS-CoV-2 in kanu opharyngeal swab specimen collected from individuals suspected of COVID-19 by eir healthcare provider. This test has not been Food and Drug Administration (FD A) cleared or approved and has been authorized by FDA under an Emergency Use Aut horization (EUA). This EUA will be effective until the declaration that circumst ances exist justifying the authorization of the emergency use of in vitro diagno stic test for detection and or diagnosis of COVID-19 is terminated under section 564(b) of the Act, or the the EUA is revoked under 564(g) of the ACT. SARS-COV2 /RT-PCR CEPHEIDResults are for the detection of SARS-COV-2 RNA. The SARS-COV-2 R NA is generally detectable in nasopharyngeal swab specimens during the acute pha se of infection. Positive results are indicitive of active infection with SARS-C OV-2; clinical correlation with patient history and other diagnostic information is necessary to determine patient infection status. Positive results do not rule out bacterial infection or co-infection with other viruses. The agent detected may not be the definite cause of the disease.The limit of detection for this as say is 250 copies/mLThe SARS-CoV-2 test is a rapid, real-time RT-PCR test intend ed for the qualitative detection of nucleic acid from SARS-CoV-2 in nasopharynge al swab specimen collected from individuals suspected of COVID-19 by their [facility]. This test has not been Food and Drug Administration (FDA) cleare d or approved and has been authorized by FDA under an Emergency Use Authorizatio n (EUA). This EUA will be effective until the declaration that circumstances exi st justifying the authorization of the emergency use of in vitro diagnostic test for detection and or diagnosis of COVID-19 is terminated under section 564(b) of the Act, or the the EUA is revoked under 564(g) of the ACT.[facility] HospitalCapillary blood glucose measurement by glucometer (mass/volume)2020-06-17 15:19:00* Test Item Value Reference Range Interpretation Comments Bedside Glucose (test code = 22848-0) 110 70-120 Meter ID: [id number] Regional Hospitaltool lactoferrin duiuhtjza3082-75-46 21:33:00* Test Item Value Reference Range Interpretation Comments Stool Lactoferrin (LAB) (test code = 19795-2) POSITIVE NEGATIVE Testing on stool aspirate specimens is outside field sales consultant claims since specime n type not validated on this assay.[facility] Clostridium difficile A and B toxin esozy3062-06-91 21:33:00* Test Item Value Reference Range Interpretation Comments Clostridium Difficile Toxin A & B (test code = 155568788) NEGATIVE NEGATIVE Testing on stool aspirate specimens is outside field sales consultant claims since specime n type not validated on this assay.[facility] HospitalCT ABDOMEN/PELVIS [id number] 11:51:00 [facility] [address] [place] [id number] Patient Name: DION QUIÑONEZ MR #: [id number] : 1940 [facility] 80[id number] Req #: [id number] Adm Physician: Ordered by: KRISTIE MATHIS DO Report #: [id number] Location: ER Room/Bed: Procedure: [id number] CT/CT ABDOMEN /PELVIS W Exam Date: 06/14/20 Exam Time: 1120 REPORT STATUS: Signed EXAM: CT Abdomen and Pelvis WITH intravenous contrast INDICATION: Diarrhea COMPARISO N: None. TECHNIQUE: Abdomen and pelvis were scanned utilizing a multidetect or helical scanner from the lung base to the pubic symphysis after administrat ion of IV contrast. Coronal and sagittal reformations were obtained. Routine p rotocol was performed. Scan was performed during portal venous phase. IV CONTRAST: 100mL of Isovue 370 ORAL CONTRAST: Water RADIATION DOSE: Total DLP: 699 mGy*cm Dose modulation, iterative reconstruction, and/or w eight based adjustment of the mA/kV was utilized to reduce the radiation dose to as low as reasonably achievable. FINDINGS: LOWER THORAX: Normal. HEPATOBILIARY: Diffuse hepatic steatosis. No focal liver lesion. No biliary ductal dilation. Unremarkable gallbladder. SPLEEN: No splenomegaly. P ANCREAS: No focal masses or ductal dilatation. ADRENALS: No adrenal nodules . KIDNEYS/URETERS: No hydronephrosis, stones, or solid mass lesions. PELVIC ORGANS/BLADDER: Hysterectomy. PERITONEUM / RETROPERITONEUM: No free air or free fluid. LYMPH NODES: No lymphadenopathy. VESSELS: Moderate atherosclerot ic calcifications of the nonaneurysmal abdominal aorta and major branches. GI TRACT: Diverticulosis without CT evidence of diverticulitis. No abnormal bowel thickening. No bowel obstruction. Normal appendix. BONES AND SOFT TIS SUES: No acute osseous injury. No suspicious lytic or blastic lesions. Mild de generative changes of the visualized spine. IMPRESSION: No acute finding s in the abdomen or pelvis. Diffuse hepatic steatosis. Diverticulosis without CT evidence of diverticulitis. Signed by: Cristina Echevarria MD on 06/14/20 11:53 AM Dictated By: CRISTINA ECHEVARRIA MD 1153 Transcribed By: VARSHA on 06/14/20 1153 COPY TO: KRISTIE MATHIS DO CHEST SINGLE (PORTABLE)2020-06-14 11:27:00 [place] [address] Patient Name: DION QUIÑONEZ MR #: [id number] : 1940 Age/Sex: 80/F Req #: [id number] Adm Physician: Ordered by: KRISTIE MATHIS DO Report #: [id number] Location: ER Room/Bed: Procedure: [id number] DX/CHEST SING LE (PORTABLE) Exam Date: 06/14/20 Exam Time: 1041 REPORT STATUS: Signed EXAMINATION: CHEST SINGLE (PORTABLE) INDICATION: Diarrhea COMPARISON: None FINDINGS: LINES/TUBES:None LUNGS:The lungs are well-inflated. No focal consolidation or pulmonary edema. PLEURA:No pleural effusion or pn eumothorax. MEDIASTINUM:The cardiomediastinal silhouette appears normal in size and shape. Atherosclerotic calcifications of the thoracic aorta. BON ES/SOFT TISSUES:No acute osseous injury. ABDOMEN:No free air under the diap hragm. IMPRESSION: No focal pneumonia or pulmonary edema. Signed by: Cristina Echevarria MD on 06/14/2020 11:28 AM Dictated By: CRISTINA ECHEVARRIA MD Filomena ctronically Signed By: CRISTINA ECHEVARRIA MD on 06/14/201127 Transcribed By: VARSHA ramírez 06/14/201127 COPY TO: KRISTIE MATHIS DO GALLBLADDER 2020-06-09 22:52:00 [place] [address] Patient Name: DION QUIÑONEZ MR #: [id number] : 1940 Age/Sex: 79/F Req #: [id number] Adm Physician: Ordered by: JESUS MATTHEWS MD Report #: [id number] Location: ER Room/Bed: Procedure: [id number] US/US GAL LBLADDER Exam Date: 06/09/20 Exam Time: 2227 REPORT STATUS: Signed EXAM: Right Upper Quadrant Ultrasound INDICATION: RUQ PAIN COMPARISON: None. TECHNIQUE: Transverse and longitudinal images of the right upper abdomen were obtained. FINDINGS: Liver: Size: 15.4 cm in the right mid clavicular line, normal Appearance: Normal echogenicity, smooth contour Mass: No focal masses Gallbladder: Stones/Sludge: None Wall: 0.26 cm Appearance: No pericholecystic fluid or hydrops. S onographic Rowe's Sign: Negative Bile Ducts: Intrahepatic Ducts: N o dilatation Extrahepatic Ducts: Common bile duct measures 0.4 cm, no dil atation Pancreas: Partially visualized due to overlying bowel gas. Right Kidney: Size: 9.5 cm Echogenicity: Normal Pare nchymal thickness: Normal Collecting system: No hydronephrosis St ones: None Cyst/Mass: None Vessels: Aorta: Visualized portion s are normal Inferior Vena Cava: Visualized portions are normal Ma in portal vein: Normal size and flow direction. Free Fluid: No ascit es or pleural effusion IMPRESSION: 1. Normal exam. No cholelithiasi s or evidence of acute cholecystitis. 2. Limited evaluation of the pancreas du e to overlying bowel gas. Signed by: Ky Monroy MD on 06/09/2020 10:57 PM Dictated By: KY MONROY MD 56 Transcribed By: VARSHA on 06/09/202256 COPY TO: JESUS BOWMAN MD Blood leukocytes automated count (number/volume) 2020-06-09 22:05:00* Test Item Value Reference Range Interpretation Comments White Blood Count (test code = 6690-2) 8.91 4.8-10.8 [facility] HospitalBlood erythrocytes automated count (number/volume)2020-06-09 22:05:00* Test Item Value Reference Range Interpretation Comments Red Blood Count (test code = 789-8) 4.43 3.6-5.1 [facility] HospitalBlood hemoglobin measurement (moles/volume)2020-06-09 22:05:00* Test Item Value Reference Range Interpretation Comments Hemoglobin (test code = 92571-9) 12.3 12.0-16.0 [facility] HospitalAutomated blood hematocrit (volume fraction)2020-06-09 22:05:00* Test Item Value Reference Range Interpretation Comments Hematocrit (test code = 4544-3) 37.5 34.2-44.1 [facility] HospitalAutomated erythrocyte mean corpuscular lferlf4630-86-70 22:05:00* Test Item Value Reference Range Interpretation Comments Mean Corpuscular Volume (test code = 787-2) 84.7 81-99 [facility] HospitalAutomated erythrocyte mean corpuscular hemoglobin (mass per erythrocyte)2020-06-09 22:05:00* Test Item Value Reference Range Interpretation Comments Mean Corpuscular Hemoglobin (test code = 785-6) 27.8 28-32 [facility] HospitalAutomated erythrocyte mean corpuscular hemoglobin concentration measurement (mass/volume)2020-06-09 22:05:00* Test Item Value Reference Range Interpretation Comments Mean Corpuscular Hemoglobin Concent (test code = 786-4) 32.8 31-35 [facility] HospitalRDW CenHj-Sbr8919-60-08 22:05:00* Test Item Value Reference Range Interpretation Comments Red Cell Distribution Width (test code = 63062-4) 13.3 11.7 -14.4 [facility] HospitalAutomated blood platelet count (count/volume)2020-06-09 22:05:00* Test Item Value Reference Range Interpretation Comments Platelet Count (test code = 777-3) 364 140-360 [facility] HospitalAutomated blood segmented neutrophil count as percentage of total mlzdqjlkpj6754-35-50 22:05:00* Test Item Value Reference Range Interpretation Comments Neutrophils (%) (Auto) (test code = 90733-4) 63.6 38.7-80.0 [facility] HospitalAutomated blood lymphocyte count as percentage ot total vryobxnyrx4509-04-64 22:05:00* Test Item Value Reference Range Interpretation Comments Lymphocytes (%) (Auto) (test code = 736-9) 23.6 18.0-39.1 [facility] HospitalAutomated blood monocyte count as percentage of total ackashodpr0607-67-47 22:05:00* Test Item Value Reference Range Interpretation Comments Monocytes (%) (Auto) (test code = 5905-5) 7.4 4.4-11.3 [facility] HospitalAutomated blood eosinophil count as percentage of total vavrgkpyer3933-78-79 22:05:00* Test Item Value Reference Range Interpretation Comments Eosinophils (%) (Auto) (test code = 713-8) 4.3 0.0-6.0 [facility] HospitalAutomated blood basophil count as percentage of total hmbclxvpro6935-29-22 22:05:00* Test Item Value Reference Range Interpretation Comments Basophils (%) (Auto) (test code = 706-2) 0.9 0.0-1.0 [facility] HospitalFluoroscopic procedure less than one hour uftmajrp6529-99-79 22:05:00* Test Item Value Reference Range Interpretation Comments IM GRANULOCYTES % (test code = IM GRANULOCYTES %) 0.2 0.0- 1.0 [facility] HospitalAutomated blood neutrophil count 2020-06-09 22:05:00* Test Item Value Reference Range Interpretation Comments Neutrophils # (Auto) (test code = 751-8) 5.7 2.1-6.9 [facility] HospitalBlood lymphocytes count (number/volume) 2020-06-09 22:05:00* Test Item Value Reference Range Interpretation Comments Lymphocytes # (Auto) (test code = 74238-4) 2.1 1.0-3.2 [facility] HospitalBlmadison hospital monocytes automated count (number/volume)2020-06-09 22:05:00* Test Item Value Reference Range Interpretation Comments Monocytes # (Auto) (test code = 742-7) 0.7 0.2-0.8 [facility] HospitalAutomated blood eosinophil count 2020-06-09 22:05:00* Test Item Value Reference Range Interpretation Comments Eosinophils # (Auto) (test code = 711-2) 0.4 0.0-0.4 [facility] HospitalAutomated blood basophil count (count/volume)2020-06-09 22:05:00* Test Item Value Reference Range Interpretation Comments Basophils # (Auto) (test code = 704-7) 0.1 0.0-0.1 [facility] HospitalFluoroscopic procedure less than one hour qitdablr9313-89-19 22:05:00* Test Item Value Reference Range Interpretation Comments Absolute Immature Granulocyte (auto (cristobal t code = Absolute Immature Granulocyte (auto) 0.02 0-0.1 [facility] sodium measurement (moles/volume)2020-06-09 22:05:00* Test Item Value Reference Range Interpretation Comments Sodium Level (test code = 2951-2) 133 136-145 [facility] plasma potassium measurement (moles/volume)2020-06-09 22:05:00* Test Item Value Reference Range Interpretation Comments Potassium Level (test code = 2823-3) 4.3 3.5-5.1 [facility] chloride measurement (moles/volume)2020-06-09 22:05:00* Test Item Value Reference Range Interpretation Comments Chloride Level (test code = 2075-0) 98 98-107 [facility] plasma carbon dioxide, total measurement (moles/volume)2020-06-09 22:05:00* Test Item Value Reference Range Interpretation Comments Carbon Dioxide Level (test code = 2028-9) 24 22-29 [facility] plasma anion fzt7664-22-11 22:05:00* Test Item Value Reference Range Interpretation Comments Anion Gap (test code = 63555-3) 15.3 8-16 [facility] urea nitrogen measurement (mass/volume)2020-06-09 22:05:00* Test Item Value Reference Range Interpretation Comments Blood Urea Nitrogen (test code = 3094-0) 12 7- [facility] plasma creatinine measurement (mass/volume)2020-06-09 22:05:00* Test Item Value Reference Range Interpretation Comments Creatinine (test code = 2160-0) 1.04 0.57-1.11 [facility] plasma urea nitrogen/creatinine mass vtrrf0520-74-44 22:05:00* Test Item Value Reference Range Interpretation Comments BUN/Creatinine Ratio (test code = 3097-3) 12 6- [facility] HospitalEstimated glomerular filtration rate (GFR) jtduafpqrwkwq1121-31-58 22:05:00* Test Item Value Reference Range Interpretation Comments Estimat Glomerular Filtration Rate (test code = 995586322) 51 >60 Ranges were taken from the National Kidney Disease Education Program and the [facility] Kidney Foundation literature.Reference ranges:60 or greater: Vveiew00-27 ( for 3 consecutive months): Chronic kidney disease 15 or less: Kidney failureMemorial Hermann Greater Heights HospitalGlucose rbwmhshphmv3848-14-73 22:05:00* Test Item Value Reference Range Interpretation Comments Glucose Level (test code = YQE0345) 117 74-118 [facility] plasma calcium measurement (mass/volume)2020-06-09 22:05:00* Test Item Value Reference Range Interpretation Comments Calcium Level (test code = 85045-2) 9.6 8.4-10.2 [facility] plasma total bilirubin measurement (mass/volume)2020-06-09 22:05:00* Test Item Value Reference Range Interpretation Comments Total Bilirubin (test code = 1975-2) 0.4 0.2-1.2 [facility] HospitalFluoroscopic procedure less than one hour sptnorxe7970-61-29 22:05:00* Test Item Value Reference Range Interpretation Comments Aspartate Amino Transf (AST/SGOT) (test code = Aspartate Amino Transf (AST/SGOT)) 17 5-34 [facility]er[facility] or plasma alanine aminotransferase measurement (enzymatic activity/volume)2020-06-09 22:05:00* Test Item Value Reference Range Interpretation Comments Alanine Aminotransferase (ALT/SGPT) (test code = 1742-6) 20 0-55 [facility]er[facility] plasma protein measurement (mass/volume)2020-06-09 22:05:00* Test Item Value Reference Range Interpretation Comments Total Protein (test code = 2885-2) 8.1 6.5-8.1 [facility]er[facility] plasma albumin measurement (mass/volume)2020-06-09 22:05:00* Test Item Value Reference Range Interpretation Comments Albumin (test code = 1751-7) 4.2 3.5-5.0 [facility] HospitalPlasma globulin measurement (mass/volume) 2020-06-09 22:05:00* Test Item Value Reference Range Interpretation Comments Globulin (test code = 30045-1) 3.9 2.3-3.5 [facility]er[facility] plasma albumin/globulin mass troim5191-89-79 22:05:00* Test Item Value Reference Range Interpretation Comments Albumin/Globulin Ratio (test code = 1759-0) 1.1 0.8-2.0 [facility]er[facility] or plasma alkaline phosphatase measurement (enzymatic activity/volume)2020-06-09 22:05:00* Test Item Value Reference Range Interpretation Comments Alkaline Phosphatase (test code = 6768-6) 97 40-150 [facility]er[facility] or plasma creatine kinase measurement (enzymatic activity/volume)2020-06-09 22:05:00* Test Item Value Reference Range Interpretation Comments Creatine Kinase (test code = 2157-6) 223 29-168 [facility]er[facility] or plasma creatine kinase MB measurement (mass/volume)2020-06-09 22:05:00* Test Item Value Reference Range Interpretation Comments Creatine Kinase MB (test code = 23323-7) 5.50 0-5.0 [facility] HospitalTroponin I measurement by highly sensitive enzyme pxltmkwlmpr6510-00-37 22:05:00* Test Item Value Reference Range Interpretation Comments Troponin I (test code = 45458-3) < 0.001 0-0.300 [facility]er[facility] or plasma amylase measurement (enzymatic activity/volume)2020-06-09 22:05:00* Test Item Value Reference Range Interpretation Comments Amylase Level (test code = 1798-8) 133 25-125 [facility]er[facility] or plasma lipase measurement (enzymatic activity/volume)2020-06-09 22:05:00* Test Item Value Reference Range Interpretation Comments Lipase (test code = 3040-3) 24 8-78 [facility] HospitalUrine color svlcetgwdfajr0487-66-14 21:49:00* Test Item Value Reference Range Interpretation Comments Urine Color (test code = 5778-6) YELLOW YELLOW [facility] HospitalUrine mjrvskb8817-03-76 21:49:00* Test Item Value Reference Range Interpretation Comments Urine Clarity (test code = 73944-8) SL CLOUDY CLE[facility] Test [facility] 2020-06-09 21:49:00* Test Item Value Reference Range Interpretation Comments Urine Specific [place] (test code = 5811-5) 1.010 1.010-1.02 5 [facility] measurement by automated test caopv0385-74-18 21:49:00* Test Item Value Reference Range Interpretation Comments Urine pH (test code = 83935-1) 5.5 5-7 [facility] leukocyte esterase detection by jxjcsrld2044-08-41 21:49:00* Test Item Value Reference Range Interpretation Comments Urine Leukocyte Esterase (test code = 5799-2) NEGATIVE NEGATIVE [facility] HospitalU[facility] nitrite kkmrxvgew1019-44-85 21:49:00* Test Item Value Reference Range Interpretation Comments Urine Nitrite (test code = 60625-7) NEGATIVE NEGATIVE [facility] protein measurement by test strip (mass/volume)2020-06-09 21:49:00* Test Item Value Reference Range Interpretation Comments Urine Protein (test code = 5804-0) TRACE NEGATIVE [facility] glucose zioxjspwt1187-04-41 21:49:00* Test Item Value Reference Range Interpretation Comments Urine Glucose (UA) (test code = 2349-9) NEGATIVE NEGATIVE [facility] HospitalU[facility] ketones detection by automated test rclfw3814-99-43 21:49:00* Test Item Value Reference Range Interpretation Comments Urine Ketones (test code = 95298-9) NEGATIVE NEGATIVE [facility] HospitalUrine urobilinogen measurement by test strip (mass/volume)2020-06-09 21:49:00* Test Item Value Reference Range Interpretation Comments Urine Urobilinogen (test code = 43196-3) 0.2 0.2-1 [facility] total bilirubin measurement (mass/volume)2020-06-09 21:49:00* Test Item Value Reference Range Interpretation Comments Urine Bilirubin (test code = 1978-6) NEGATIVE NEGATIVE [facility] HospitalU[facility] erythrocytes pdbphntby1732-71-59 21:49:00* Test Item Value Reference Range Interpretation Comments Urine Blood (test code = 45542-5) MODERATE NEGATIVE [facility] HospitalAutomated urine sediment leukocyte count by microscopy (number/high power field)2020-06-09 21:49:00* Test Item Value Reference Range Interpretation Comments Urine WBC (test code = 5821-4) 0-5 0-5 [facility] HospitalErythrocytes detection in urine sediment by light zdxmlqgkhf5871-77-25 21:49:00* Test Item Value Reference Range Interpretation Comments Urine RBC (test code = 14632-7) 6-10 0-5 [facility] HospitalBacteria detection in urine sediment by light adjuwdkumf7847-80-82 21:49:00* Test Item Value Reference Range Interpretation Comments Urine Bacteria (test code = 61668-7) [facility]W [facility]Epit[facility] cells detection in urine sediment by light bzcoowdhie1482-50-78 21:49:00* Test Item Value Reference Range Interpretation Comments Urine Epithelial Cells (test code = 88166-1) FEW NONE [facility] HospitalMucus detection in urine sediment by light cclnndzwbt1004-01-86 21:49:00* Test Item Value Reference Range Interpretation Comments Urine Mucus (test code = 8247-9) FEW RARE [facility] HospitalMucus detection in urine sediment by light jexdarpodr5990-99-18 21:49:00* Test Item Value Reference Range Interpretation Comments Urine Mucus (test code = 8247-9) [facility] [id number] 00:53:00 [facility] [address] [address] Patient Name: DION QUIÑONEZ MR #: [id number] : 1940 Age/Sex: 79/F Req #: [id number] Adm Physician: Ordered by: KRISTIE MATHIS DO Report #: [id number] Location: ER Room/Bed: Procedure: [id number] CT/CT BRAIN W O Exam Date: 05/15/20 Exam Time: 0030 REPORT STATUS: Signed History:left weakness Comparison studies:None Technique: Axial images were obtained from the sk ull base to the vertex. Coronal and sagittal images reconstructed from the axi al data. Intravenous contrast: None Findings: Scalp/skull: No abnorm alities. Extra-axial spaces: No masses. No fluid collections. Brain s ulci: Mildly prominent. Ventricles: Mild compensatory dilatation. No hydroceph alus. Parenchyma: Subtle bilateral supratentorial white matter hypodensi ties are small vessel microvascular changes. A 4mm dystrophic calcification in the left putamen is not associated with surrounding edema. No masses, hem orrhage, acute or chronic vascular insults. Sellar/suprasellar region: No a bnormalities. Craniocervical junction: Patent foramen magnum. No Chiari one m alformation. Incidental findings: Subtle atherosclerotic calcifications i n the carotid siphons Non obstructing retention cyst in the left sphenoid sin us. Impression: 1. No acute abnormalities. 2. Specifically, no ac rosebud vascular insults or acute hemorrhage. Chronic findings: * Mild gener alized volume loss. * Mild parietal white matter microvascular ischemic manzanares es. Signed by: Dr. Pedro Barillas M.D. on 05/15/2020 1:08 AM Dict ated By: PEDRO BARILLAS MD 7 COPY TO: BOWEN MATHIS ICA, DO Blood leukocytes automated count (number/volume)2020-05-15 00:02:00* Test Item Value Reference Range Interpretation Comments White Blood Count (test code = 6690-2) 10.13 4.8-10.8 [facility]Blood erythrocytes automated count (number/volume)2020-05-15 00:02:00* Test Item Value Reference Range Interpretation Comments Red Blood Count (test code = 789-8) 4.00 3.6-5.1 [facility] HospitalBlood hemoglobin measurement (moles/volume)2020-05-15 00:02:00* Test Item Value Reference Range Interpretation Comments Hemoglobin (test code = 95295-4) 11.1 12.0-16.0 [facility] HospitalAutomated blood hematocrit (volume fraction)2020-05-15 00:02:00* Test Item Value Reference Range Interpretation Comments Hematocrit (test code = 4544-3) 34.2 34.2-44.1 [facility] HospitalAutomated erythrocyte mean corpuscular zjdrzp1690-17-53 00:02:00* Test Item Value Reference Range Interpretation Comments Mean Corpuscular Volume (test code = 787-2) 85.5 81-99 [facility] HospitalAutomated erythrocyte mean corpuscular hemoglobin (mass per erythrocyte)2020-05-15 00:02:00* Test Item Value Reference Range Interpretation Comments Mean Corpuscular Hemoglobin (test code = 785-6) 27.8 28-32 [facility] HospitalAutomated erythrocyte mean corpuscular hemoglobin concentration measurement (mass/volume)2020-05-15 00:02:00* Test Item Value Reference Range Interpretation Comments Mean Corpuscular Hemoglobin Concent (test code = 786-4) 32.5 31-35 [facility] HospitalRDW JocUk-Use6294-17-14 00:02:00* Test Item Value Reference Range Interpretation Comments Red Cell Distribution Width (test code = 13465-3) 13.3 11.7 -14.4 [facility] HospitalAutomated blood platelet count (count/volume)2020-05-15 00:02:00* Test Item Value Reference Range Interpretation Comments Platelet Count (test code = 777-3) 344 140-360 [facility] HospitalAutomated blood segmented neutrophil count as percentage of total sqfhgkgdxr8098-80-09 00:02:00* Test Item Value Reference Range Interpretation Comments Neutrophils (%) (Auto) (test code = 05406-8) 61.0 38.7-80.0 [facility] HospitalAutomated blood lymphocyte count as percentage ot total mhqtzhrqkp7747-08-16 00:02:00* Test Item Value Reference Range Interpretation Comments Lymphocytes (%) (Auto) (test code = 736-9) 24.5 18.0-39.1 [facility] HospitalAutomated blood monocyte count as percentage of total bqnbzexwob1848-50-93 00:02:00* Test Item Value Reference Range Interpretation Comments Monocytes (%) (Auto) (test code = 5905-5) 5.7 4.4-11.3 [facility] HospitalAutomated blood eosinophil count as percentage of total eeicypafzj7354-09-97 00:02:00* Test Item Value Reference Range Interpretation Comments Eosinophils (%) (Auto) (test code = 713-8) 8.1 0.0-6.0 [facility] HospitalAutomated blood basophil count as percentage of total oufcjnbgct4113-70-05 00:02:00* Test Item Value Reference Range Interpretation Comments Basophils (%) (Auto) (test code = 706-2) 0.4 0.0-1.0 [facility] HospitalFluoroscopic procedure less than one hour aecfbjej0228-94-35 00:02:00* Test Item Value Reference Range Interpretation Comments IM GRANULOCYTES % (test code = IM GRANULOCYTES %) 0.3 0.0- 1.0 [facility] HospitalAutomated blood neutrophil count 2020-05-15 00:02:00* Test Item Value Reference Range Interpretation Comments Neutrophils # (Auto) (test code = 751-8) 6.2 2.1-6.9 [facility] HospitalBlood lymphocytes count (number/volume) 2020-05-15 00:02:00* Test Item Value Reference Range Interpretation Comments Lymphocytes # (Auto) (test code = 05399-5) 2.5 1.0-3.2 [facility] HospitalBlood monocytes automated count (number/volume)2020-05-15 00:02:00* Test Item Value Reference Range Interpretation Comments Monocytes # (Auto) (test code = 742-7) 0.6 0.2-0.8 [facility] HospitalAutomated blood eosinophil count 2020-05-15 00:02:00* Test Item Value Reference Range Interpretation Comments Eosinophils # (Auto) (test code = 711-2) 0.8 0.0-0.4 [facility] HospitalAutomated blood basophil count (count/volume)2020-05-15 00:02:00* Test Item Value Reference Range Interpretation Comments Basophils # (Auto) (test code = 704-7) 0.0 0.0-0.1 [facility] HospitalFluoroscopic procedure less than one hour ofmvwnab4040-92-85 00:02:00* Test Item Value Reference Range Interpretation Comments Absolute Immature Granulocyte (auto (cristobal t code = Absolute Immature Granulocyte (auto) 0.03 0-0.1 [facility] or plasma sodium measurement (moles/volume)2020-05-15 00:02:00* Test Item Value Reference Range Interpretation Comments Sodium Level (test code = 2951-2) 137 136-145 [facility]erum or plasma potassium measurement (moles/volume)2020-05-15 00:02:00* Test Item Value Reference Range Interpretation Comments Potassium Level (test code = 2823-3) 4.3 3.5-5.1 [facility] plasma chloride measurement (moles/volume)2020-05-15 00:02:00* Test Item Value Reference Range Interpretation Comments Chloride Level (test code = 2075-0) 100 98-107 [facility]er[facility] or plasma carbon dioxide, total measurement (moles/volume)2020-05-15 00:02:00* Test Item Value Reference Range Interpretation Comments Carbon Dioxide Level (test code = 2028-9) 25 22-29 [facility] or plasma anion gjo3382-39-15 00:02:00* Test Item Value Reference Range Interpretation Comments Anion Gap (test code = 57050-1) 16.3 8-16 [facility] plasma urea nitrogen measurement (mass/volume)2020-05-15 00:02:00* Test Item Value Reference Range Interpretation Comments Blood Urea Nitrogen (test code = 3094-0) 15 7-26 [facility] or plasma creatinine measurement (mass/volume)2020-05-15 00:02:00* Test Item Value Reference Range Interpretation Comments Creatinine (test code = 2160-0) 0.80 0.57-1.11 [facility]erum or plasma urea nitrogen/creatinine mass yrojc8141-75-30 00:02:00* Test Item Value Reference Range Interpretation Comments BUN/Creatinine Ratio (test code = 3097-3) 19 6-25 [facility] HospitalEstimated glomerular filtration rate (GFR) rtatyezrdonku5719-10-86 00:02:00* Test Item Value Reference Range Interpretation Comments Estimat Glomerular Filtration Rate (test code = 918825654) > 60 >60 Ranges were taken from the National Kidney Disease Education Program and the [facility] literature.Reference ranges:60 or greater: Atnizq70-43 ( for 3 consecutive months): Chronic kidney disease 15 or less: Kidney failureMemorial Hermann Greater Heights HospitalGlucose sylbewfhpkn8196-35-65 00:02:00* Test Item Value Reference Range Interpretation Comments Glucose Level (test code = HGX4887) 110 74-118 [facility]erum or plasma calcium measurement (mass/volume)2020-05-15 00:02:00* Test Item Value Reference Range Interpretation Comments Calcium Level (test code = 57657-2) 9.5 8.4-10.2 [facility]er[facility] or plasma total bilirubin measurement (mass/volume)2020-05-15 00:02:00* Test Item Value Reference Range Interpretation Comments Total Bilirubin (test code = 1975-2) 0.2 0.2-1.2 [facility] HospitalFluoroscopic procedure less than one hour hjqipvee6161-12-83 00:02:00* Test Item Value Reference Range Interpretation Comments Aspartate Amino Transf (AST/SGOT) (test code = Aspartate Amino Transf (AST/SGOT)) 12 5-34 [facility]erum or plasma alanine aminotransferase measurement (enzymatic activity/volume)2020-05-15 00:02:00* Test Item Value Reference Range Interpretation Comments Alanine Aminotransferase (ALT/SGPT) (test code = 1742-6) 15 0-55 [facility]erum or plasma protein measurement (mass/volume)2020-05-15 00:02:00* Test Item Value Reference Range Interpretation Comments Total Protein (test code = 2885-2) 7.5 6.5-8.1 [facility]erum or plasma albumin measurement (mass/volume)2020-05-15 00:02:00* Test Item Value Reference Range Interpretation Comments Albumin (test code = 1751-7) 3.8 3.5-5.0 [facility] HospitalPlasma globulin measurement (mass/volume) 2020-05-15 00:02:00* Test Item Value Reference Range Interpretation Comments Globulin (test code = 13029-4) 3.7 2.3-3.5 [facility] or plasma albumin/globulin mass qrhyh2172-30-23 00:02:00* Test Item Value Reference Range Interpretation Comments Albumin/Globulin Ratio (test code = 1759-0) 1.0 0.8-2.0 [facility]er[facility] or plasma alkaline phosphatase measurement (enzymatic activity/volume)2020-05-15 00:02:00* Test Item Value Reference Range Interpretation Comments Alkaline Phosphatase (test code = 6768-6) 83 40-150 [facility]erum or plasma creatine kinase measurement (enzymatic activity/volume)2020-05-15 00:02:00* Test Item Value Reference Range Interpretation Comments Creatine Kinase (test code = 2157-6) 105 29-168 [facility]erum or plasma creatine kinase MB measurement (mass/volume)2020-05-15 00:02:00* Test Item Value Reference Range Interpretation Comments Creatine Kinase MB (test code = 64893-5) 2.20 0-5.0 [facility] HospitalTroponin I measurement by highly sensitive enzyme jziddhuhzcm5177-75-02 00:02:00* Test Item Value Reference Range Interpretation Comments Troponin I (test code = 07912-8) < 0.001 0-0.300 [facility]
[2020-06-25] MEDS ORDERED: SODIUM CHLORIDE 0.9% 1000ML 1,000 ML IV SCH (22:45)
--- OUTSIDE RECORDS SUMMARY | 2020-06-25 23:06 | XMS REPORT | Clinical Summary ---
Author Author [facility] Organization [facility] Address Unknown Phone Unavailable Care Team Providers Care Box Packer Name Role Phone PCP Unavailable Allergies Comments [...] / Dates Group MEDICARE MEDICARE xxxxxxxxxxx 2011-P [phone] PART A & B resent [id number] [place] [address] [employer] MED[employer]ARE OPTIONS [employer] xxxxxxxxxxxx 2015-P MCA HMO DUAL resent [id number] OPTION MMP [address] [address] [place] [address] (Work)
--- OUTSIDE RECORDS SUMMARY | 2020-06-25 23:07 | XMS REPORT | Continuity of Care Document ---
Author Author [facility] t Organization [facility] t Address [address] [place] [address] Phone Unavailable Care Team Providers Care Email Marketing Executive Name Role Phone MD Alysia FERNÁNDEZ PCP ANUSHKA GOULD Attphys Unavailable Petra MATHIS Attphys Unavailable Jose MATTHEWS Attphys Unavailable Payers Payer Name Policy Type Policy Number Effective Date Expiration Date S sangeeta Plasencia Medicare [id number] 2015 00:00:00 [facility] Plasencia [employer] [id number] 2015 00:00:00 [facility] Problems Condition Name Condition Details Condition Category Status Onset Date Resolution Date Last Treatment Date Treating Clinician Comments Source Mass on back Mass on back Disease Active 2017-11-29 00:00:00 [facility] Neuropathy Problem Active [facility] Gastritis Problem Active [facility] Abdominal pain Problem Active [facility] Hyponatremia Problem Active [facility] Diarrhea Problem Active [facility] Allergies, Adverse Reactions, Alerts Allergy Name Allergy Type Status Severity Reaction(s) Onset Date Inacti ve Date Treating Clinician Comments Source influenza virus vaccine, specific Allergy to substance Active 2020-06-23 00:00:00 [facility] FLU SHOT Allergy to substance Active 2020-06-23 00:00:00 [facility] Penicillin Allergy to substance Active Moderate 2020-05-15 00:00:0 0 [facility] Penicillin Propensity to adverse reactions to drug Active Rash, Swelling 2016-09-05 00:00:00 Julian mclaughlin Social History Social Habit Start Date Stop Date Quantity Comments Source Sex Assigned At [facility] Alcohol intake 2016-09-05 00:00:00 2016-09-05 00:00:00 Current non-drinker of alcohol (finding) [facility] Smoking Status Start Date Stop Date Source Never smoker [facility] Medications Ordered Medication Name Filled Medication Name Start Date Stop Da te Current Medication? Ordering Clinician Indication Dosage Frequency Signature (SIG) Comments Components Source Lidocaine/Menthol (Lidopatch) 1 Each ADH..PATCH Lidoca ine/Menthol (Lidopatch) 1 Each ADH..PATCH 2020-06-23 20:16:00 Yes 1 Daily [facility] Sulfamethoxazole/Trimethoprim (Bactrim Ds Tablet) 1 Ea ch TABLET Sulfamethoxazole/Trimethoprim (Bactrim Ds Tablet) 1 Each TABLET 2020-06-23 20:16:00 Yes 1 Twice A Day [facility] Tramadol Hcl (Ultram) 50 Mg TABLET Tramadol Hcl (Ultram) 50 Mg TABLET 2020-06-23 20:16:00 Yes 50 Every 6 Ho urs as needed for Mild Pain (1-3) Or Fever>100.8 [facility] ibuprofen (MOTRIN) 800 mg tablet 2016-09-05 00:00:00 Yes Pain, dental 800mg Take 1 tablet by mouth every 8 hours as needed for Pain (take with food). [facility] gabapentin (NEURONTIN) 300 mg capsule 2011-06-16 00:00:00 Yes Renal colic 300mg Take 1 Cap by mouth daily before a meal. [facility] Amlodipine Besylate (Norvasc) 10 Mg TAB Amlodipine Besylate (Norvasc) 10 Mg TAB Yes 10 Daily [facility] Clonidine Hcl Clonidine Hcl Yes 1 Bedtime [facility] Diphenhydramine Hcl (Benadryl) 25 Mg CAPSULE Diphenhyd ramine Hcl (Benadryl) 25 Mg CAPSULE Yes as needed for Allergy [facility] Loperamide Hcl (Loperamide) 2 Mg TABLET Loperamide Hcl (Erlinda ramide) 2 Mg TABLET Yes 2 Every 6 Hours as needed for Fina rrhea [facility] Loratadine Loratadine Yes 10 Daily [facility] Losartan Potassium Losartan Potassium Yes 12.5 Da elizabeth [facility] Metformin Hcl Metformin Hcl Yes 1000 [facility] Omeprazole Omeprazole Yes 20 Daily [facility] Simvastatin Simvastatin Yes 40 Bedtime [facility] Levofloxacin Levofloxacin 2020-06-16 00:00:00 No 500 Daily [facility] Apixaban (Eliquis) 2.5 Mg TABLET Apixaban (Eliquis) 2.5 Mg TABLE T 2020-06-15 00:00:00 No [facility] Metoprolol Tartrate (Lopressor) 25 Mg TAB Metoprolol T artrate (Lopressor) 25 Mg TAB 2020-06-15 00:00:00 No Daily [facility] Vital Signs Vital Name Observation Time Observation Value Comments Source Weight 2020-06-23 17:08:00 160 [lb_av] [facility] BMI (Body Mass Index) 2020-06-23 17:08:00 26.6 kg/m2 [facility] Body Temperature 2020-06-17 15:57:00 98.1 [degF] [facility] Weight 2020-06-09 21:35:00 168 [lb_av] [facility] BMI (Body Mass Index) 2020-06-09 21:35:00 32.8 kg/m2 [facility] Body Temperature 2020-05-15 01:33:00 98.4 [degF] [facility] Weight 2020-05-14 23:56:00 168 [lb_av] [facility] BMI (Body Mass Index) 2020-05-14 23:56:00 32.8 kg/m2 [facility] Procedures Procedure Date / Time Performed Performing Clinician [facility] e Computed tomography of abdomen and pelvis with contrast 00:00:00 [facility] Computed tomography of abdomen and pelvis with contrast 00:00:00 [facility] US Gallbladder 2020-06-09 00:00:00 [facility] Computed tomography of brain without radiopaque contrast 2020-05 00:00:00 [facility] Plan of Care Planned Activity Planned Date Details Comments Source Future Scheduled Test 2020-08-02 00:00:00 IMM Influenza Seas onal Aug to December (>/= 19 yrs) [code = IMM Influenza Seasonal Aug to December (>/= 19 yrs)] [facility] Future Scheduled Test 2006 00:00:00 IMM Pneumococcal A ge 65 and Up [code = IMM Pneumococcal Age 65 and Up] [facility] Instructions Back Pain [facility] Instructions Urinary Tract Infection - Women [facility] Encounters Start Date/Time End Date/Time Encounter Type Admission Type [facility] Care Department Encounter ID Source 2020-06-23 17:15:00 2020-06-23 17:15:00 Registered Emergency Room 1 MARSHALLNICKI [facility] [id number] [facility] 2020-06-14 12:00:00 2020-06-17 18:20:00 Discharged Inpatient [facility] [id number] [facility] 2020-06-09 21:49:00 2020-06-09 23:58:00 Departed Emergency Room JESUS MATTHEWS [facility] [id number] [facility] 2020-05-15 01:00:00 2020-05-15 01:45:00 Departed Emergency Room DEL [facility] [id number] [facility] 2019-08-30 10:36:00 2019-08-30 10:36:00 Emergency E [facility] [id number] [facility] 2018-10-22 20:09:2018-10-22 20:09:00 Emergency E [facility] [id number] [facility] 2017-11-29 17:12:18 2017-11-29 17:12:18 Emergency [facility] [id number] [facility] Results Test Description Test Time Test Comments Results Result Comments Source CT ABDOMEN/PELVIS W 2020-06-25 22:07:00 [place] [address] Patient Name: DION QUIÑONEZ MR #: [id number] : 1940 Age/Sex: 80/F Req #: [id number] Adm Physician: Ordered by: ANUSHKA GOULD DO Report #: [id number] Location: ER Room/Bed: Procedure: [id number] CT/CT ABDOMEN/PELVIS W Exam Date: 06/25/20 Exam [...] GOULD DO CHEST SINGLE (PORTABLE) 2020-06-25 21:22:00 [place] [address] Patient Name: DION QUIÑONEZ MR #: [id number] : 1940 Age/Sex: 80/F Req #: [id number] Adm Physician: Ordered by: ANUSHKA GOULD DO Report #: [id number] Location: ER Room/Bed: Procedure: [id number] DX/CHEST SINGLE (PORTABLE) Exam Date: 06/25/20 Exam [...] Transcribed By: VARSHA on 06/25/202129 COPY TO: NAUSHKA GOULD DO CT ABDOMEN/PELVIS W 2020-06-23 19:45:00 [place] [address] Patient Name: DION QUIÑONEZ MR #: [id number] : 1940 Age/Sex: 80/F Req #: [id number] Adm Physician: Ordered by: KRISTIE MATHIS DO Report #: [id number] Location: ER Room/Bed: Procedure: [id number] CT/CT ABDOMEN/PELVIS W Exam Date: 06/23/20 Exam [...] By: ALAN ONEAL DO 49 Transcribed By: VARSHA on 06/23/201949 COPY TO: KRISTIE MATHIS DO CHEST SINGLE (PORTABLE) 2020-06-23 18:45:00 [place] [address] Patient Name: DION QUIÑONEZ MR #: [id number] : 1940 Age/Sex: 80/F Req #: [id number] Adm Physician: Ordered by: LAMONTE SANTOS MD Report #: [id number] Location: ER Room/Bed: Procedure: [id number] DX/CHEST SINGLE (PORTABLE) Exam Date: 06/23/20 Exam [...] Count (test code = 6690-2) 8.43 4.8-10.8 [facility] automated count (number/volume)2020-06-23 17:30:00* Test Item Value Reference Range Interpretation Comments Red Blood Count (test code = 789-8) 4.17 3.6-5.1 [facility] hemoglobin measurement (moles/volume)2020-06-23 17:30:00* Test Item Value Reference Range Interpretation Comments Hemoglobin (test code = 65246-6) 11.9 12.0-16.0 [facility]ney[facility]ated blood hematocrit (volume fraction)2020-06-23 17:30:00* Test Item Value Reference Range Interpretation Comments Hematocrit (test code = 4544-3) 35.0 34.2-44.1 [facility]ney[facility]ated erythrocyte mean corpuscular ahdwos3570-30-98 17:30:00* Test Item Value Reference Range Interpretation Comments Mean Corpuscular Volume (test code = 787-2) 83.9 81-99 [facility]ney[facility] erythrocyte mean corpuscular hemoglobin (mass per erythrocyte)2020-06-23 17:30:00* Test Item Value Reference Range Interpretation Comments Mean Corpuscular Hemoglobin (test code = 785-6) 28.5 28-32 [facility]ney[facility] erythrocyte mean corpuscular hemoglobin concentration measurement (mass/volume)2020-06-23 17:30:00* Test Item Value Reference Range Interpretation Comments Mean Corpuscular Hemoglobin Concent (test code = 786-4) 34.0 31-35 [facility] McKinneyRDW JelDo-Deu4801-84-22 17:30:00* Test Item Value Reference Range Interpretation Comments Red Cell Distribution Width (test code = 26090-6) 12.7 11.7 -14.4 [facility]neyAutomated blood platelet count (count/volume)2020-06-23 17:30:00* Test Item Value Reference Range Interpretation Comments Platelet Count (test code = 777-3) 341 140-360 [facility] McKinneyAutomated blood segmented neutrophil count as percentage of total cwmnnpnkml0292-48-74 17:30:00* Test Item Value Reference Range Interpretation Comments Neutrophils (%) (Auto) (test code = 72843-7) 70.7 38.7-80.0 [facility]neyAutomated blood lymphocyte count as percentage ot total hqbiibrooi0845-75-18 17:30:00* Test Item Value Reference Range Interpretation Comments Lymphocytes (%) (Auto) (test code = 736-9) 19.7 18.0-39.1 [facility]neyAutomated blood monocyte count as percentage of total nbnqwjfute9648-36-38 17:30:00* Test Item Value Reference Range Interpretation Comments Monocytes (%) (Auto) (test code = 5905-5) 6.9 4.4-11.3 [facility]neyAutomated blood eosinophil count as percentage of total xepwezmgku0114-43-42 17:30:00* Test Item Value Reference Range Interpretation Comments Eosinophils (%) (Auto) (test code = 713-8) 1.4 0.0-6.0 [facility]neyAutformerly [facility]ed [facility] basophil count as percentage of total dfeydoamhp4384-12-73 17:30:00* Test Item Value Reference Range Interpretation Comments Basophils (%) (Auto) (test code = 706-2) 0.5 0.0-1.0 [facility] McKinneyFluoroscopic procedure less than one hour fxbusmis9099-38-36 17:30:00* Test Item Value Reference Range Interpretation Comments IM GRANULOCYTES % (test code = IM GRANULOCYTES %) 0.8 0.0- 1.0 [facility]neyAutformerly [facility] neutrophil count 2020-06-23 17:30:00* Test Item Value Reference Range Interpretation Comments Neutrophils # (Auto) (test code = 751-8) 6.0 2.1-6.9 [facility]ney[facility] lymphocytes count (number/volume) 2020-06-23 17:30:00* Test Item Value Reference Range Interpretation Comments Lymphocytes # (Auto) (test code = 23022-4) 1.7 1.0-3.2 [facility]ney[facility] monocytes automated count (number/volume)2020-06-23 17:30:00* Test Item Value Reference Range Interpretation Comments Monocytes # (Auto) (test code = 742-7) 0.6 0.2-0.8 [facility]neyAutomated blood eosinophil count 2020-06-23 17:30:00* Test Item Value Reference Range Interpretation Comments Eosinophils # (Auto) (test code = 711-2) 0.1 0.0-0.4 [facility] basophil count (count/volume)2020-06-23 17:30:00* Test Item Value Reference Range Interpretation Comments Basophils # (Auto) (test code = 704-7) 0.0 0.0-0.1 [facility]neyFluoroscopic procedure less than one hour towwkqqe9890-75-93 17:30:00* Test Item Value Reference Range Interpretation Comments Absolute Immature Granulocyte (auto (cristobal t code = Absolute Immature Granulocyte (auto) 0.07 0-0.1 [facility]neyProthrombin time (PT) in platelet poor plasma by coagulation qplmt1464-47-38 17:30:00* Test Item Value Reference Range Interpretation Comments Prothrombin Time (test code = 5902-2) 12.7 11.9-14.5 [facility] McKinneyINR in Platelet poor plasma by Coagulation mzuxe8314-71-20 17:30:00* Test Item Value Reference Range Interpretation Comments Prothromb Time International Ratio (test code = 6301-6) 0.91 Oral Anticoagulant Therapy INR Values:1. Low Intensity Therapy 1.5 - 2.02 . Moderate Intensity Therapy 2.0 - 3.03. High Intensity Therapy(1) 2.5 - 3. 54. High Intensity Therapy(2) 3.0 - 4.05. Panic Value INR > 5.0 [facility] McKinneyActivated partial thromboplastin time (aPTT) in platelet poor plasma by coagulation cktet1442-75-60 17:30:00* Test Item Value Reference Range Interpretation Comments Activated Partial Thromboplast Time (test code = 89705-3) 29.9 23.8-35.5 [facility]neyUrine color xwocklkusuqeq3038-76-50 17:30:00* Test Item Value Reference Range Interpretation Comments Urine Color (test code = 5778-6) COLORLESS YELLOW [facility] McKinneyUrine awnbekq5919-39-11 17:30:00* Test Item Value Reference Range Interpretation Comments Urine Clarity (test code = 06508-0) CLEAR CLEAR [facility] gravity of Urine by Test strip 2020-06-23 17:30:00* Test Item Value Reference Range Interpretation Comments Urine Specific [place] (test code = 5811-5) 1.020 1.010-1.02 5 [facility]neyUrine pH measurement by automated test qwpqw0564-41-71 17:30:00* Test Item Value Reference Range Interpretation Comments Urine pH (test code = 92031-1) 7.5 5-7 [facility]neyUrine leukocyte esterase detection by phumraja9390-87-92 17:30:00* Test Item Value Reference Range Interpretation Comments Urine Leukocyte Esterase (test code = 5799-2) NEGATIVE NEGATIVE [facility] McKinneyUrine nitrite pirpaicif5359-22-76 17:30:00* Test Item Value Reference Range Interpretation Comments Urine Nitrite (test code = 91737-3) NEGATIVE NEGATIVE [facility]neyUrine protein measurement by test strip (mass/volume)2020-06-23 17:30:00* Test Item Value Reference Range Interpretation Comments Urine Protein (test code = 5804-0) NEGATIVE NEGATIVE [facility] McKinneyUrine glucose ssrlwolgl6937-87-91 17:30:00* Test Item Value Reference Range Interpretation Comments Urine Glucose (UA) (test code = 2349-9) NEGATIVE NEGATIVE [facility] McKinneyUrine ketones detection by automated test ttnie8779-28-70 17:30:00* Test Item Value Reference Range Interpretation Comments Urine Ketones (test code = 48936-1) NEGATIVE NEGATIVE [facility] McKinneyUrine urobilinogen measurement by test strip (mass/volume)2020-06-23 17:30:00* Test Item Value Reference Range Interpretation Comments Urine Urobilinogen (test code = 19549-6) 0.2 0.2-1 [facility]neyUrine total bilirubin measurement (mass/volume)2020-06-23 17:30:00* Test Item Value Reference Range Interpretation Comments Urine Bilirubin (test code = 1978-6) NEGATIVE NEGATIVE [facility]neyUrine erythrocytes xltqpljbk2752-24-17 17:30:00* Test Item Value Reference Range Interpretation Comments Urine Blood (test code = 39057-1) SMALL NEGATIVE [facility] McKinneyAutomated urine sediment leukocyte count by microscopy (number/high power field)2020-06-23 17:30:00* Test Item Value Reference Range Interpretation Comments Urine WBC (test code = 5821-4) 11-20 0-5 [facility] McKinneyErythrocytes detection in urine sediment by light gotempeiqi4674-87-82 17:30:00* Test Item Value Reference Range Interpretation Comments Urine RBC (test code = 67498-5) 11-20 0-5 [facility] McKinneyBacteria detection in urine sediment by light ihiblsswgj8039-14-22 17:30:00* Test Item Value Reference Range Interpretation Comments Urine Bacteria (test code = 16434-8) MODERATE NONE [facility] McKinneyEpithelial cells detection in urine sediment by light roenzufjlb5373-96-53 17:30:00* Test Item Value Reference Range Interpretation Comments Urine Epithelial Cells (test code = 99773-7) MODERATE NONE [facility] Paso[facility]um or plasma sodium measurement (moles/volume)2020-06-23 17:30:00* Test Item Value Reference Range Interpretation Comments Sodium Level (test code = 2951-2) 126 136-145 [facility] Pasoerum or plasma potassium measurement (moles/volume)2020-06-23 17:30:00* Test Item Value Reference Range Interpretation Comments Potassium Level (test code = 2823-3) 4.3 3.5-5.1 [facility] Pasoerum or plasma chloride measurement (moles/volume)2020-06-23 17:30:00* Test Item Value Reference Range Interpretation Comments Chloride Level (test code = 2075-0) 87 98-107 [facility] Pasoerum or plasma carbon dioxide, total measurement (moles/volume)2020-06-23 17:30:00* Test Item Value Reference Range Interpretation Comments Carbon Dioxide Level (test code = 2028-9) 26 22-29 [facility] Pasoerum or plasma anion nus3934-09-92 17:30:00* Test Item Value Reference Range Interpretation Comments Anion Gap (test code = 02950-2) 17.3 8-16 [facility] Pasoerum or plasma urea nitrogen measurement (mass/volume)2020-06-23 17:30:00* Test Item Value Reference Range Interpretation Comments Blood Urea Nitrogen (test code = 3094-0) 8 7-26 [facility] Pasoerum or plasma creatinine measurement (mass/volume)2020-06-23 17:30:00* Test Item Value Reference Range Interpretation Comments Creatinine (test code = 2160-0) 0.84 0.57-1.11 [facility] Pasoerum or plasma urea nitrogen/creatinine mass wkywm9816-52-98 17:30:00* Test Item Value Reference Range Interpretation Comments BUN/Creatinine Ratio (test code = 3097-3) 10 6-25 [facility]neyEstimated glomerular filtration rate (GFR) umaozhpikqoqu5996-60-24 17:30:00* Test Item Value Reference Range Interpretation Comments Estimat Glomerular Filtration Rate (test code = 157847186) > 60 >60 Ranges were taken from the National Kidney Disease Education Program and the [facility] [employer] literature.Reference ranges:60 or greater: Lpjpyk96-08 ( for 3 consecutive months): Chronic kidney disease 15 or less: Kidney failureB[facility] & [facility] McKinneyGlucose eymrwxcnnfy7770-26-02 17:30:00* Test Item Value Reference Range Interpretation Comments Glucose Level (test code = RUW9761) 108 74-118 [facility] Paso[facility]um or plasma calcium measurement (mass/volume)2020-06-23 17:30:00* Test Item Value Reference Range Interpretation Comments Calcium Level (test code = 56363-3) 9.3 8.4-10.2 [facility] Paso[facility]um or plasma magnesium measurement (mass/volume)2020-06-23 17:30:00* Test Item Value Reference Range Interpretation Comments Magnesium Level (test code = 01122-5) 1.8 1.3-2.1 [facility] Pasoerum or plasma total bilirubin measurement (mass/volume)2020-06-23 17:30:00* Test Item Value Reference Range Interpretation Comments Total Bilirubin (test code = 1975-2) 0.3 0.2-1.2 [facility] McKinneyFluoroscopic procedure less than one hour crbigefz4114-39-94 17:30:00* Test Item Value Reference Range Interpretation Comments Aspartate Amino Transf (AST/SGOT) (test code = Aspartate Amino Transf (AST/SGOT)) 17 5-34 [facility] Pasoerum or plasma alanine aminotransferase measurement (enzymatic activity/volume)2020-06-23 17:30:00* Test Item Value Reference Range Interpretation Comments Alanine Aminotransferase (ALT/SGPT) (test code = 1742-6) 17 0-55 [facility] Pasoerum or plasma protein measurement (mass/volume)2020-06-23 17:30:00* Test Item Value Reference Range Interpretation Comments Total Protein (test code = 2885-2) 7.8 6.5-8.1 [facility] Pasoerum or plasma albumin measurement (mass/volume)2020-06-23 17:30:00* Test Item Value Reference Range Interpretation Comments Albumin (test code = 1751-7) 4.1 3.5-5.0 [facility] McKinneyPlasma globulin measurement (mass/volume) 2020-06-23 17:30:00* Test Item Value Reference Range Interpretation Comments Globulin (test code = 72360-7) 3.7 2.3-3.5 [facility] Pasoerum or plasma albumin/globulin mass aynnj6299-62-67 17:30:00* Test Item Value Reference Range Interpretation Comments Albumin/Globulin Ratio (test code = 1759-0) 1.1 0.8-2.0 [facility] Pasoerum or plasma alkaline phosphatase measurement (enzymatic activity/volume)2020-06-23 17:30:00* Test Item Value Reference Range Interpretation Comments Alkaline Phosphatase (test code = 6768-6) 94 40-150 [facility] Pasoerum or plasma creatine kinase measurement (enzymatic activity/volume)2020-06-23 17:30:00* Test Item Value Reference Range Interpretation Comments Creatine Kinase (test code = 2157-6) 125 29-168 [facility] Pasoerum or plasma creatine kinase MB measurement (mass/volume)2020-06-23 17:30:00* Test Item Value Reference Range Interpretation Comments Creatine Kinase MB (test code = 56539-2) 2.80 0-5.0 [facility] McKinneyTroponin I measurement by highly sensitive enzyme swsvaxrkndh7969-84-55 17:30:00* Test Item Value Reference Range Interpretation Comments Troponin I (test code = 18412-0) 0.001 0-0.300 [facility] Paso[facility]um or plasma amylase measurement (enzymatic activity/volume)2020-06-23 17:30:00* Test Item Value Reference Range Interpretation Comments Amylase Level (test code = 1798-8) 144 25-125 [facility] Pasoerum or plasma lipase measurement (enzymatic activity/volume)2020-06-23 17:30:00* Test Item Value Reference Range Interpretation Comments Lipase (test code = 3040-3) 38 8-78 [facility] McKinneyFluoroscopic procedure less than one hour nsfkzjul6012-84-09 17:30:00* Test Item Value Reference Range Interpretation [...] from individuals suspected of COVID-19 by their [facility] provider. This test has not been [...] EUA is revoked under 564(g) of the ACT.[facility] McKinneyCapillary blood glucose measurement by glucometer (mass/volume)2020-06-17 15:19:00* Test Item Value Reference Range Interpretation Comments Bedside Glucose (test code = 17849-2) 110 70-120 Meter ID: [id number] [facility] Center of El Pasotool lactoferrin ybcijfkzi0856-74-30 21:33:00* Test Item Value Reference Range Interpretation Comments Stool Lactoferrin (LAB) (test code = 10008-8) POSITIVE NEGATIVE Testing on stool aspirate specimens is outside manager [employer] claims since specime n type not validated on this assay.[facility] Clostridium difficile A and B toxin vddwb6224-87-43 21:33:00* Test Item Value Reference Range Interpretation Comments Clostridium Difficile Toxin A & B (test code = 420656971) NEGATIVE NEGATIVE Testing on stool aspirate specimens is outside manager [employer] claims since specime n type not validated on this assay.[facility] McKinneyCT ABDOMEN/PELVIS I7518-30-10 11:51:00 [facility] [address] [place] [address] Patient Name: DION QUIÑONEZ MR #: [id number] : 1940 Age/[facility]: 80[id number] Req #: [id number] Adm Physician: Ordered by: KRISTIE MATHIS DO Report #: [id number] Location: ER Room/Bed: Procedure: [id number] CT/CT ABDOMEN /PELVIS W Exam Date: 06/14/20 [...] KRISTIE MATHIS DO CHEST SINGLE (PORTABLE)2020-06-14 11:27:00 [place] [address] Patient Name: DION QUIÑONEZ MR #: [id number] : 1940 Age/Sex: 80/F Req #: [id number] Adm Physician: Ordered by: KRISTIE MATHIS DO Report #: [id number] Location: ER Room/Bed: Procedure: [id number] DX/CHEST SING LE (PORTABLE) Exam Date: 06/14/20 [...] TO: KRISTIE MATHIS DO GALLBLADDER 2020-06-09 22:52:00 [place] [address] Patient Name: DION QUIÑONEZ MR #: [id number] : 1940 Age/Sex: 79/F Req #: [id number] Adm Physician: Ordered by: JESUS MATTHEWS MD Report #: [id number] Location: ER Room/Bed: Procedure: [id number] US/US GAL LBLADDER Exam Date: 06/09/20 Exam [...] Count (test code = 6690-2) 8.91 4.8-10.8 [facility] McKinneyBlood erythrocytes automated count (number/volume)2020-06-09 22:05:00* Test Item Value Reference Range Interpretation Comments Red Blood Count (test code = 789-8) 4.43 3.6-5.1 [facility] McKinneyBlood hemoglobin measurement (moles/volume)2020-06-09 22:05:00* Test Item Value Reference Range Interpretation Comments Hemoglobin (test code = 91912-6) 12.3 12.0-16.0 [facility] McKinneyAutomated blood hematocrit (volume fraction)2020-06-09 22:05:00* Test Item Value Reference Range Interpretation Comments Hematocrit (test code = 4544-3) 37.5 34.2-44.1 [facility] McKinneyAutomated erythrocyte mean corpuscular tceqvp7254-80-73 22:05:00* Test Item Value Reference Range Interpretation Comments Mean Corpuscular Volume (test code = 787-2) 84.7 81-99 [facility] McKinneyAutomated erythrocyte mean corpuscular hemoglobin (mass per erythrocyte)2020-06-09 22:05:00* Test Item Value Reference Range Interpretation Comments Mean Corpuscular Hemoglobin (test code = 785-6) 27.8 28-32 [facility] McKinneyAutomated erythrocyte mean corpuscular hemoglobin concentration measurement (mass/volume)2020-06-09 22:05:00* Test Item Value Reference Range Interpretation Comments Mean Corpuscular Hemoglobin Concent (test code = 786-4) 32.8 31-35 [facility] McKinneyRDW HgoZn-Pfq0170-70-08 22:05:00* Test Item Value Reference Range Interpretation Comments Red Cell Distribution Width (test code = 26339-6) 13.3 11.7 -14.4 [facility] McKinneyAutomated blood platelet count (count/volume)2020-06-09 22:05:00* Test Item Value Reference Range Interpretation Comments Platelet Count (test code = 777-3) 364 140-360 [facility] McKinneyAutomated blood segmented neutrophil count as percentage of total ckxbiehwdw7390-66-40 22:05:00* Test Item Value Reference Range Interpretation Comments Neutrophils (%) (Auto) (test code = 93048-6) 63.6 38.7-80.0 [facility] McKinneyAutomated blood lymphocyte count as percentage ot total wpfbnostpy5816-02-61 22:05:00* Test Item Value Reference Range Interpretation Comments Lymphocytes (%) (Auto) (test code = 736-9) 23.6 18.0-39.1 [facility] McKinneyAutomated blood monocyte count as percentage of total osawoxehft9645-14-30 22:05:00* Test Item Value Reference Range Interpretation Comments Monocytes (%) (Auto) (test code = 5905-5) 7.4 4.4-11.3 [facility] McKinneyAutomated blood eosinophil count as percentage of total roqvglvrpk6523-79-36 22:05:00* Test Item Value Reference Range Interpretation Comments Eosinophils (%) (Auto) (test code = 713-8) 4.3 0.0-6.0 [facility] McKinneyAutomated blood basophil count as percentage of total ioemtypsan6413-04-19 22:05:00* Test Item Value Reference Range Interpretation Comments Basophils (%) (Auto) (test code = 706-2) 0.9 0.0-1.0 [facility] McKinneyFluoroscopic procedure less than one hour zahmitnh2426-44-49 22:05:00* Test Item Value Reference Range Interpretation Comments IM GRANULOCYTES % (test code = IM GRANULOCYTES %) 0.2 0.0- 1.0 [facility] McKinneyAutomated blood neutrophil count 2020-06-09 22:05:00* Test Item Value Reference Range Interpretation Comments Neutrophils # (Auto) (test code = 751-8) 5.7 2.1-6.9 [facility] McKinneyBlood lymphocytes count (number/volume) 2020-06-09 22:05:00* Test Item Value Reference Range Interpretation Comments Lymphocytes # (Auto) (test code = 29403-9) 2.1 1.0-3.2 [facility] McKinneyBlst. francis [facility] monocytes automated count (number/volume)2020-06-09 22:05:00* Test Item Value Reference Range Interpretation Comments Monocytes # (Auto) (test code = 742-7) 0.7 0.2-0.8 [facility] McKinneyAutomated blood eosinophil count 2020-06-09 22:05:00* Test Item Value Reference Range Interpretation Comments Eosinophils # (Auto) (test code = 711-2) 0.4 0.0-0.4 [facility] McKinneyAutomated blood basophil count (count/volume)2020-06-09 22:05:00* Test Item Value Reference Range Interpretation Comments Basophils # (Auto) (test code = 704-7) 0.1 0.0-0.1 [facility] McKinneyFluoroscopic procedure less than one hour wojrstiz9441-06-15 22:05:00* Test Item Value Reference Range Interpretation Comments Absolute Immature Granulocyte (auto (cristobal t code = Absolute Immature Granulocyte (auto) 0.02 0-0.1 [facility] Pasoerum or plasma sodium measurement (moles/volume)2020-06-09 22:05:00* Test Item Value Reference Range Interpretation Comments Sodium Level (test code = 2951-2) 133 136-145 [facility] Pasoerum or plasma potassium measurement (moles/volume)2020-06-09 22:05:00* Test Item Value Reference Range Interpretation Comments Potassium Level (test code = 2823-3) 4.3 3.5-5.1 [facility] Pasoerum or plasma chloride measurement (moles/volume)2020-06-09 22:05:00* Test Item Value Reference Range Interpretation Comments Chloride Level (test code = 2075-0) 98 98-107 [facility] Pasoerum or plasma carbon dioxide, total measurement (moles/volume)2020-06-09 22:05:00* Test Item Value Reference Range Interpretation Comments Carbon Dioxide Level (test code = 2028-9) 24 22-29 [facility] Pasoerum or plasma anion nxy7823-77-27 22:05:00* Test Item Value Reference Range Interpretation Comments Anion Gap (test code = 07932-2) 15.3 8-16 [facility] Pasoerum or plasma urea nitrogen measurement (mass/volume)2020-06-09 22:05:00* Test Item Value Reference Range Interpretation Comments Blood Urea Nitrogen (test code = 3094-0) 12 7- [facility] Pasoerum or plasma creatinine measurement (mass/volume)2020-06-09 22:05:00* Test Item Value Reference Range Interpretation Comments Creatinine (test code = 2160-0) 1.04 0.57-1.11 [facility] Pasoerum or plasma urea nitrogen/creatinine mass nbaxj3065-51-54 22:05:00* Test Item Value Reference Range Interpretation Comments BUN/Creatinine Ratio (test code = 3097-3) 12 6- [facility] McKinneyEstimated glomerular filtration rate (GFR) qwencyaikzpbt5498-26-96 22:05:00* Test Item Value Reference Range Interpretation Comments Estimat Glomerular Filtration Rate (test code = 164334338) 51 >60 Ranges were taken from the National Kidney Disease Education Program and the [facility] Kidney Foundation literature.Reference ranges:60 or greater: Rjhvee60-95 ( for 3 consecutive months): Chronic kidney disease 15 or less: Kidney failureBaylor Scott & White Medical Center – McKinneyGlucose qxyhyvzxopt8319-22-69 22:05:00* Test Item Value Reference Range Interpretation Comments Glucose Level (test code = SLB3516) 117 74-118 [facility] Pasoerum or plasma calcium measurement (mass/volume)2020-06-09 22:05:00* Test Item Value Reference Range Interpretation Comments Calcium Level (test code = 54190-5) 9.6 8.4-10.2 [facility] Pasoerum or plasma total bilirubin measurement (mass/volume)2020-06-09 22:05:00* Test Item Value Reference Range Interpretation Comments Total Bilirubin (test code = 1975-2) 0.4 0.2-1.2 [facility] McKinneyFluoroscopic procedure less than one hour hcptpwvs5746-30-06 22:05:00* Test Item Value Reference Range Interpretation Comments Aspartate Amino Transf (AST/SGOT) (test code = Aspartate Amino Transf (AST/SGOT)) 17 5-34 [facility] Pasoerum or plasma alanine aminotransferase measurement (enzymatic activity/volume)2020-06-09 22:05:00* Test Item Value Reference Range Interpretation Comments Alanine Aminotransferase (ALT/SGPT) (test code = 1742-6) 20 0-55 [facility] Pasoerum or plasma protein measurement (mass/volume)2020-06-09 22:05:00* Test Item Value Reference Range Interpretation Comments Total Protein (test code = 2885-2) 8.1 6.5-8.1 [facility] Pasoerum or plasma albumin measurement (mass/volume)2020-06-09 22:05:00* Test Item Value Reference Range Interpretation Comments Albumin (test code = 1751-7) 4.2 3.5-5.0 [facility] McKinneyPlasma globulin measurement (mass/volume) 2020-06-09 22:05:00* Test Item Value Reference Range Interpretation Comments Globulin (test code = 40008-9) 3.9 2.3-3.5 [facility] Pasoerum or plasma albumin/globulin mass yrhub8665-59-46 22:05:00* Test Item Value Reference Range Interpretation Comments Albumin/Globulin Ratio (test code = 1759-0) 1.1 0.8-2.0 [facility] Pasoerum or plasma alkaline phosphatase measurement (enzymatic activity/volume)2020-06-09 22:05:00* Test Item Value Reference Range Interpretation Comments Alkaline Phosphatase (test code = 6768-6) 97 40-150 [facility] Pasoerum or plasma creatine kinase measurement (enzymatic activity/volume)2020-06-09 22:05:00* Test Item Value Reference Range Interpretation Comments Creatine Kinase (test code = 2157-6) 223 29-168 [facility] Pasoerum or plasma creatine kinase MB measurement (mass/volume)2020-06-09 22:05:00* Test Item Value Reference Range Interpretation Comments Creatine Kinase MB (test code = 84302-0) 5.50 0-5.0 [facility] McKinneyTroponin I measurement by highly sensitive enzyme afaouiqpjyf1477-13-47 22:05:00* Test Item Value Reference Range Interpretation Comments Troponin I (test code = 98492-2) < 0.001 0-0.300 [facility] Pasoerum or plasma amylase measurement (enzymatic activity/volume)2020-06-09 22:05:00* Test Item Value Reference Range Interpretation Comments Amylase Level (test code = 1798-8) 133 25-125 [facility] Pasoerum or plasma lipase measurement (enzymatic activity/volume)2020-06-09 22:05:00* Test Item Value Reference Range Interpretation Comments Lipase (test code = 3040-3) 24 8-78 [facility] McKinneyUrine color hpzwykzezlxdk7159-25-32 21:49:00* Test Item Value Reference Range Interpretation Comments Urine Color (test code = 5778-6) YELLOW YELLOW [facility] McKinneyUrine hlsvhzc4522-11-99 21:49:00* Test Item Value Reference Range Interpretation Comments Urine Clarity (test code = 35869-1) SL CLOUDY CLEAR [facility] Pasopecific gravity of Urine by Test strip 2020-06-09 21:49:00* Test Item Value Reference Range Interpretation Comments Urine Specific [place] (test code = 5811-5) 1.010 1.010-1.02 5 [facility] McKinneyUrine pH measurement by automated test qwklx2818-71-30 21:49:00* Test Item Value Reference Range Interpretation Comments Urine pH (test code = 11801-3) 5.5 5-7 [facility] McKinneyUrine leukocyte esterase detection by yvktvuts5442-19-57 21:49:00* Test Item Value Reference Range Interpretation Comments Urine Leukocyte Esterase (test code = 5799-2) NEGATIVE NEGATIVE [facility] McKinneyUrine nitrite dwedlupfg5216-68-69 21:49:00* Test Item Value Reference Range Interpretation Comments Urine Nitrite (test code = 06615-9) NEGATIVE NEGATIVE [facility] McKinneyUrine protein measurement by test strip (mass/volume)2020-06-09 21:49:00* Test Item Value Reference Range Interpretation Comments Urine Protein (test code = 5804-0) TRACE NEGATIVE [facility] McKinneyUrine glucose vzuwpoyxf8644-43-57 21:49:00* Test Item Value Reference Range Interpretation Comments Urine Glucose (UA) (test code = 2349-9) NEGATIVE NEGATIVE [facility] McKinneyUrine ketones detection by automated test rrhsb1500-14-61 21:49:00* Test Item Value Reference Range Interpretation Comments Urine Ketones (test code = 83517-7) NEGATIVE NEGATIVE [facility] McKinneyUrine urobilinogen measurement by test strip (mass/volume)2020-06-09 21:49:00* Test Item Value Reference Range Interpretation Comments Urine Urobilinogen (test code = 53303-2) 0.2 0.2-1 [facility] McKinneyUrine total bilirubin measurement (mass/volume)2020-06-09 21:49:00* Test Item Value Reference Range Interpretation Comments Urine Bilirubin (test code = 1978-6) NEGATIVE NEGATIVE [facility] McKinneyUrine erythrocytes udfuxdasf0204-18-39 21:49:00* Test Item Value Reference Range Interpretation Comments Urine Blood (test code = 71154-9) MODERATE NEGATIVE [facility] McKinneyAutomated urine sediment leukocyte count by microscopy (number/high power field)2020-06-09 21:49:00* Test Item Value Reference Range Interpretation Comments Urine WBC (test code = 5821-4) 0-5 0-5 [facility] McKinneyErythrocytes detection in urine sediment by light kkwofdcsrb1202-85-69 21:49:00* Test Item Value Reference Range Interpretation Comments Urine RBC (test code = 94823-3) 6-10 0-5 [facility] McKinneyBacteria detection in urine sediment by light gmfgzmtzfm4017-56-23 21:49:00* Test Item Value Reference Range Interpretation Comments Urine Bacteria (test code = 23024-9) [facility]W [facility] CampusEpithelial cells detection in urine sediment by light idufiewjsj7425-31-36 21:49:00* Test Item Value Reference Range Interpretation Comments Urine Epithelial Cells (test code = 19426-4) FEW NONE [facility] McKinneyMucus detection in urine sediment by light gaxnfwqcam1393-73-64 21:49:00* Test Item Value Reference Range Interpretation Comments Urine Mucus (test code = 8247-9) FEW RARE [facility] McKinneyMucus detection in urine sediment by light xfvuevojjb3145-77-46 21:49:00* Test Item Value Reference Range Interpretation Comments Urine Mucus (test code = 8247-9) [facility]W [facility] FQ6426-13-56 00:53:00 [facility] [address] [place] [address] Patient Name: DION QUIÑONEZ MR #: [id number] : 1940 Age/Sex: 79/F Req #: [id number] Adm Physician: Ordered by: KRISTIE MATHIS DO Report #: [id number] Location: ER Room/Bed: Procedure: [id number] CT/CT BRAIN W O Exam Date: 05/15/20 [...] No acute abnormalities. 2. Specifically, no ac [place] vascular insults or acute hemorrhage. Chronic findings: [...] Count (test code = 6690-2) 10.13 4.8-10.8 [facility] McKinneyBlood erythrocytes automated count (number/volume)2020-05-15 00:02:00* Test Item Value Reference Range Interpretation Comments Red Blood Count (test code = 789-8) 4.00 3.6-5.1 [facility] McKinneyBlood hemoglobin measurement (moles/volume)2020-05-15 00:02:00* Test Item Value Reference Range Interpretation Comments Hemoglobin (test code = 10639-3) 11.1 12.0-16.0 [facility] McKinneyAutomated blood hematocrit (volume fraction)2020-05-15 00:02:00* Test Item Value Reference Range Interpretation Comments Hematocrit (test code = 4544-3) 34.2 34.2-44.1 [facility] McKinneyAutomated erythrocyte mean corpuscular dpfwak1595-83-90 00:02:00* Test Item Value Reference Range Interpretation Comments Mean Corpuscular Volume (test code = 787-2) 85.5 81-99 [facility] McKinneyAutomated erythrocyte mean corpuscular hemoglobin (mass per erythrocyte)2020-05-15 00:02:00* Test Item Value Reference Range Interpretation Comments Mean Corpuscular Hemoglobin (test code = 785-6) 27.8 28-32 [facility] McKinneyAutomated erythrocyte mean corpuscular hemoglobin concentration measurement (mass/volume)2020-05-15 00:02:00* Test Item Value Reference Range Interpretation Comments Mean Corpuscular Hemoglobin Concent (test code = 786-4) 32.5 31-35 [facility] McKinneyRDW SvnGi-Uvb2732-72-14 00:02:00* Test Item Value Reference Range Interpretation Comments Red Cell Distribution Width (test code = 46008-7) 13.3 11.7 -14.4 [facility] McKinneyAutomated blood platelet count (count/volume)2020-05-15 00:02:00* Test Item Value Reference Range Interpretation Comments Platelet Count (test code = 777-3) 344 140-360 [facility] McKinneyAutomated blood segmented neutrophil count as percentage of total oitfgezanu6777-21-32 00:02:00* Test Item Value Reference Range Interpretation Comments Neutrophils (%) (Auto) (test code = 40252-5) 61.0 38.7-80.0 [facility] McKinneyAutomated blood lymphocyte count as percentage ot total girfnfrbsv9108-83-46 00:02:00* Test Item Value Reference Range Interpretation Comments Lymphocytes (%) (Auto) (test code = 736-9) 24.5 18.0-39.1 [facility] McKinneyAutomated blood monocyte count as percentage of total ukkcnzpidv6028-46-91 00:02:00* Test Item Value Reference Range Interpretation Comments Monocytes (%) (Auto) (test code = 5905-5) 5.7 4.4-11.3 [facility] McKinneyAutomated blood eosinophil count as percentage of total vbdmzykuuw2201-23-98 00:02:00* Test Item Value Reference Range Interpretation Comments Eosinophils (%) (Auto) (test code = 713-8) 8.1 0.0-6.0 [facility] McKinneyAutomated blood basophil count as percentage of total gdyygjbgjx3612-39-85 00:02:00* Test Item Value Reference Range Interpretation Comments Basophils (%) (Auto) (test code = 706-2) 0.4 0.0-1.0 [facility] McKinneyFluoroscopic procedure less than one hour hltagpvc3923-61-41 00:02:00* Test Item Value Reference Range Interpretation Comments IM GRANULOCYTES % (test code = IM GRANULOCYTES %) 0.3 0.0- 1.0 [facility] McKinneyAutomated blood neutrophil count 2020-05-15 00:02:00* Test Item Value Reference Range Interpretation Comments Neutrophils # (Auto) (test code = 751-8) 6.2 2.1-6.9 [facility] McKinneyBlood lymphocytes count (number/volume) 2020-05-15 00:02:00* Test Item Value Reference Range Interpretation Comments Lymphocytes # (Auto) (test code = 35829-6) 2.5 1.0-3.2 [facility] McKinneyBlood monocytes automated count (number/volume)2020-05-15 00:02:00* Test Item Value Reference Range Interpretation Comments Monocytes # (Auto) (test code = 742-7) 0.6 0.2-0.8 [facility] McKinneyAutomated blood eosinophil count 2020-05-15 00:02:00* Test Item Value Reference Range Interpretation Comments Eosinophils # (Auto) (test code = 711-2) 0.8 0.0-0.4 [facility] McKinneyAutomated blood basophil count (count/volume)2020-05-15 00:02:00* Test Item Value Reference Range Interpretation Comments Basophils # (Auto) (test code = 704-7) 0.0 0.0-0.1 [facility] McKinneyFluoroscopic procedure less than one hour ifpmpdak8300-64-05 00:02:00* Test Item Value Reference Range Interpretation Comments Absolute Immature Granulocyte (auto (cristobal t code = Absolute Immature Granulocyte (auto) 0.03 0-0.1 [facility] Pasoerum or plasma sodium measurement (moles/volume)2020-05-15 00:02:00* Test Item Value Reference Range Interpretation Comments Sodium Level (test code = 2951-2) 137 136-145 [facility] Pasoerum or plasma potassium measurement (moles/volume)2020-05-15 00:02:00* Test Item Value Reference Range Interpretation Comments Potassium Level (test code = 2823-3) 4.3 3.5-5.1 [facility] Pasoerum or plasma chloride measurement (moles/volume)2020-05-15 00:02:00* Test Item Value Reference Range Interpretation Comments Chloride Level (test code = 2075-0) 100 98-107 [facility] Pasoerum or plasma carbon dioxide, total measurement (moles/volume)2020-05-15 00:02:00* Test Item Value Reference Range Interpretation Comments Carbon Dioxide Level (test code = 2028-9) 25 22-29 [facility] Pasoerum or plasma anion mgp0050-98-46 00:02:00* Test Item Value Reference Range Interpretation Comments Anion Gap (test code = 35735-6) 16.3 8-16 [facility] Pasoerum or plasma urea nitrogen measurement (mass/volume)2020-05-15 00:02:00* Test Item Value Reference Range Interpretation Comments Blood Urea Nitrogen (test code = 3094-0) 15 7-26 [facility] Pasoerum or plasma creatinine measurement (mass/volume)2020-05-15 00:02:00* Test Item Value Reference Range Interpretation Comments Creatinine (test code = 2160-0) 0.80 0.57-1.11 [facility] Pasoerum or plasma urea nitrogen/creatinine mass vjckh7205-30-64 00:02:00* Test Item Value Reference Range Interpretation Comments BUN/Creatinine Ratio (test code = 3097-3) 19 6-25 [facility] McKinneyEstimated glomerular filtration rate (GFR) zgvxavoxxzflz9470-81-25 00:02:00* Test Item Value Reference Range Interpretation Comments Estimat Glomerular Filtration Rate (test code = 625182348) > 60 >60 Ranges were taken from the National Kidney Disease Education Program and the [facility] Kid[facility] Foundation literature.Reference ranges:60 or greater: Xfdjgj60-42 ( for 3 consecutive months): Chronic kidney disease 15 or less: Kid[facility] failureBaylor [facility]neyGlucose [id number] 00:02:00* Test Item Value Reference Range Interpretation Comments Glucose Level (test code = CAH0074) 110 74-118 [facility] calcium [facility] (mass/volume)2020-05-15 00:02:00* Test Item Value Reference Range Interpretation Comments Calcium Level (test code = 75671-3) 9.5 8.4-10.2 [facility] total bilirubin measurement (mass/volume)2020-05-15 00:02:00* Test Item Value Reference Range Interpretation Comments Total Bilirubin (test code = 1975-2) 0.2 0.2-1.2 [facility]neyFluoroscopic procedure less than one hour [id number] 00:02:00* Test Item Value Reference Range Interpretation Comments Aspartate Amino Transf (AST/SGOT) (test code = Aspartate Amino Transf (AST/SGOT)) 12 5-34 [facility] alanine aminotransferase measurement (enzymatic activity/volume)2020-05-15 00:02:00* Test Item Value Reference Range Interpretation Comments Alanine Aminotransferase (ALT/SGPT) (test code = 1742-6) 15 0-55 [facility] protein measurement (mass/volume)2020-05-15 00:02:00* Test Item Value Reference Range Interpretation Comments Total Protein (test code = 2885-2) 7.5 6.5-8.1 [facility] albumin measurement (mass/volume)2020-05-15 00:02:00* Test Item Value Reference Range Interpretation Comments Albumin (test code = 1751-7) 3.8 3.5-5.0 [facility]ney[facility]asma globulin measurement (mass/volume) 2020-05-15 00:02:00* Test Item Value Reference Range Interpretation Comments Globulin (test code = 63128-2) 3.7 2.3-3.5 [facility] albumin/globulin mass [id number] 00:02:00* Test Item Value Reference Range Interpretation Comments Albumin/Globulin Ratio (test code = 1759-0) 1.0 0.8-2.0 [facility] alkaline phosphatase measurement (enzymatic activity/volume)2020-05-15 00:02:00* Test Item Value Reference Range Interpretation Comments Alkaline Phosphatase (test code = 6768-6) 83 40-150 [facility] plasma creatine kinase measurement (enzymatic activity/volume)2020-05-15 00:02:00* Test Item Value Reference Range Interpretation Comments Creatine Kinase (test code = 2157-6) 105 29-168 [facility] creatine kinase MB measurement (mass/volume)2020-05-15 00:02:00* Test Item Value Reference Range Interpretation Comments Creatine Kinase MB (test code = 99237-4) 2.20 0-5.0 [facility]neyTroponin I measurement by highly sensitive enzyme [id number] 00:02:00* Test Item Value Reference Range Interpretation Comments Troponin I (test code = 19212-6) < 0.001 0-0.300 [facility]
[2020-06-25] MEDS: MORPHINE SULFATE INJ 4 MG/ML INJ 1ML IV PRN (23:39)
[2020-06-25] MEDS: ONDANSETRON HCL INJ 2MG/ML 2ML 2 MG/ML VIAL IV PRN (23:39)
--- NOTE | 2020-06-25 23:57 | NUR ---
Per ER MD, stop maintenance fluids at this time.
[2020-06-26] VITALS (10 sets, daily range): BP systolic 124–150; BP diastolic 44–74
--- NOTE | 2020-06-26 00:40 | NUR ---
RECEIVED PATIENT FROM ED VIA WHEELCHAIR AT THIS TIME. PATIENT AMBULATED TO BATHROOM AND BED, STEADY GAIT NOTED. PATIENT NAUSEATED DURING AND AFTER TRANSFER, BUT NAUSEA CALMED WHEN PATIENT GOT IN BED. A&OX3. MILD PAIN TO EPIGASTRIC AREA REPORTED, 2/10. LUNG SOUNDS CLEAR. BOWEL SOUNDS ACTIVE. SKIN INTACT. NO EDEMA NOTED. PEDAL PULSES PALPABLE. PATIENT HAS PERSONAL NON-SKID SOCKS ON. TELE MONITOR [address]. NO CHEST PAIN REPORTED AT THIS TIME. IV TO L AC 20G ASYMPTOMATIC, INTACT, AND PATENT. ORIENTED PATIENT TO ROOM AND CALL LIGHT SYSTEM. NO QUESTIONS AT THIS TIME. BED LOCKED IN LOWEST POSITION, SIDE RAILS UPX2, CALL LIGHT IN REACH.
[2020-06-26] MEDS ORDERED: METFORMIN HCL500 MG PO (01:45)
[2020-06-26] MEDS ORDERED: AMLODIPINE BESY10 MG PO (01:45)
[2020-06-26] MEDS ORDERED: OMEPRAZOLE40 MG PO (01:45)
[2020-06-26] MEDS ORDERED: ZOFRAN8 MG PO (01:45)
[2020-06-26] MEDS ORDERED: LOSARTAN POTAS100 MG PO (01:45)
[2020-06-26] MEDS ORDERED: SIMVASTATIN40 MG PO (01:45)
[2020-06-26 04:38] LABS: BASOPHILS % 0.4 % (0.0-1.0); EOSINOPHILS # (AUTO) 0.2 (0.0-0.4); EOSINOPHILS % 2.6 % (0.0-6.0); HEMATOCRIT 35.7 % (34.2-44.1); HEMOGLOBIN 12.2 g/dL (12.0-16.0); LYMPHOCYTES # (AUTO) 1.8 (1.0-3.2); LYMPHOCYTES % 24.6 % (18.0-39.1); MEAN CORPUSCULAR HGB CONC 34.2 g/dL (31-35); MEAN CORPUSCULAR VOLUME 82.1 fL (81-99); MONOCYTES # (AUTO) 0.7 (0.2-0.8); NEUTROPHILS # (AUTO) 4.7 (2.1-6.9); NEUTROPHILS % 63.3 % (38.7-80.0); PLATELET COUNT 348 x10e3/uL (140-360); RED BLOOD COUNT 4.35 x10e6/uL (3.6-5.1)
[2020-06-26] MEDS: ONDANSETRON HCL INJ 2MG/ML 2ML 2 MG/ML VIAL IV PRN ×2 (04:51→09:40)
[2020-06-26 05:04] LABS: ALANINE AMINOTRANSFERASE 16 IU/L (0-55); ALBUMIN 3.9 g/dL (3.5-5.0); ALBUMIN/GLOBULIN RATIO 1.1 (0.8-2.0); ALKALINE PHOSPHATASE 82 IU/L (40-150); ANION GAP 15.2 mmol/L (8-16); BLOOD UREA NITROGEN 6 mg/dL (7-26); BUN/CREATININE RATIO 7 (6-25); CALCIUM 9.3 mg/dL (8.4-10.2); CARBON DIOXIDE 25 mmol/L (22-29); CHLORIDE 88 mmol/L (98-107); CREATININE, SERUM 0.83 mg/dL (0.57-1.11); EST GLOMERULAR FILTRATION RATE > 60 ML/MIN (60-); GLUCOSE 108 mg/dL (74-118); POTASSIUM 4.2 mmol/L (3.5-5.1); SODIUM 124 mmol/L (136-145)
[2020-06-26] MEDS ORDERED: PANTOPRAZOLE SO40 MG PO (05:24)
[2020-06-26 05:33] LABS: CREATINE KINASE MB 3.1 ng/mL (0-5.0)
[2020-06-26] MEDS: MORPHINE SULFATE INJ 4 MG/ML INJ 1ML IV PRN (09:43)
--- NOTE | 2020-06-26 09:50 | NUR ---
Dr. Docekry at bedside to examine patient. Ordered for urinalysis and suggested surgery consult. Will continue to see patient. Primary MD to be notified.
--- NOTE | 2020-06-26 10:43 | Consultation ---
DATE OF CONSULTATION: 06/26/2020 Cardiology Consultation REASON FOR CONSULTATION: Chest pain. HISTORY OF PRESENT ILLNESS: Ms. Avila is a 80-year-old woman with history of morbid obesity, diabetes mellitus, hypertension, and reported history of previous urinary tract infection and instrumentation to urinary tract, unspecified several years prior. She presents with complaints of discomfort to the upper abdomen, lower chest radiating to the left flank, constant, lasting at least the last 3 days. She denies any fever. She denies any dysuria. She denies any diarrhea. Has had some nausea. Denies vomiting. She denies any exertional chest discomfort or shortness of breath. REVIEW OF SYSTEMS: A 12-system review is negative except for as noted above. ALLERGIES: TO PENICILLIN. PAST MEDICAL HISTORY: Remarkable for diabetes, hypertension, and prior urinary tract infection. SOCIAL HISTORY: Denies smoking, alcohol, or drugs. FAMILY HISTORY: Noncontributory. PHYSICAL EXAMINATION: VITAL SIGNS: Temperature 98.5, heart rate 73, blood pressure 131/52, respiratory rate 18, and O2 saturation 100%. BMI 32. GENERAL: In no acute distress. Alert. NECK: No JVD. Supple. CHEST: Clear to auscultation bilaterally. CARDIOVASCULAR: Regular rate and rhythm. Normal S1 and S2. No S3 or S4. ABDOMEN: Soft. Bowel sounds positive. EXTREMITIES: No edema. Normothermic extremities. CARDIOVASCULAR MEDICATIONS: Reviewed. Aspirin 81 mg daily. Zofran and morphine. STUDIES: Reviewed. Sodium 124, potassium 4.2, chloride 88, bicarbonate 25, BUN 6, creatinine 0.83, and glucose 108. White blood cell 7.4, hemoglobin 12.2, and platelets 348. AST 16, ALT 16, alkaline phosphatase 82, and total bilirubin is 0.4. ASSESSMENT AND PLAN: 1. A 80-year-old woman presents with epigastric and lower chest discomfort radiating to flank. 2. Diabetes, hypertension, and morbid obesity. 3. Hyponatremia. 4. History of prior urinary tract infections. RECOMMEND: 1. On echocardiogram, preserved left ventricular systolic function, mild left ventricular hypertrophy. Monitor blood pressure. 2. Continue aspirin for now. 3. Obtain urinalysis and urine culture. Consider surgical consultation as right upper quadrant discomfort and epigastric discomfort observe. Differential diagnosis includes urinary tract pathology versus gallbladder biliary tract disease. Symptoms of the chest discomfort and serial cardiac enzymes have been ordered and it shows enzymes negative. Symptom pattern does not fit typical anginal symptoms. We will follow closely with you. MD DAMIEN Hu/TANA /[id number]
[2020-06-26] MEDS ORDERED: ONDANSETRON HCL INJ 2MG/ML 2ML 2 MG/ML VIAL IV PRN (13:45)
--- NOTE | 2020-06-26 16:14 | Diagnostic Imaging Report ---
EXAM: CT Abdomen and Pelvis WITHOUT intravenous contrast INDICATION: Renal calculi COMPARISON: CT abdomen and pelvis of 06/25/2020 TECHNIQUE: Abdomen and pelvis were scanned utilizing a multidetector helical scanner from the lung base to the pubic symphysis without administration of IV contrast. Coronal and sagittal reformations were obtained. IV CONTRAST: None ORAL CONTRAST: Water COMPLICATIONS: None RADIATION DOSE: Total DLP: 600 mGy*cm Dose modulation, iterative reconstruction, and/or weight based adjustment of the mA/kV was utilized to reduce the radiation dose to as low as reasonably achievable. FINDINGS: LOWER THORAX: Normal. HEPATOBILIARY: No focal liver lesions. Vicarious excretion of contrast in the gallbladder. SPLEEN: No splenomegaly. PANCREAS: No focal masses or ductal dilatation. ADRENALS: No adrenal nodules. KIDNEYS/URETERS: No hydronephrosis or renal calculi. Trace residual contrast material in the calyces. PELVIC ORGANS/BLADDER: Contrast material in the bladder. Status post hysterectomy. PERITONEUM / RETROPERITONEUM: No free air or fluid. LYMPH NODES: No lymphadenopathy. VESSELS: Moderate atherosclerotic calcifications of the nonaneurysmal abdominal aorta and major branches. GI TRACT: No abnormal bowel thickening. No bowel obstruction. Diverticulosis without CT evidence of diverticulitis. Normal appendix. BONES AND SOFT TISSUES: No acute osseous injury. IMPRESSION: No acute findings in the abdomen or pelvis. Specifically, no renal calculi or hydronephrosis. Diverticulosis without CT evidence of diverticulitis. Signed by: Su Godinez MD on 06/26/2020 4:11 PM
[2020-06-26 16:48] LABS: CLARITY,URINE SL CLOUDY (CLEAR); COLOR,URINE YELLOW (YELLOW); LEUKOCYTE ESTERASE ,URINE NEGATIVE (NEGATIVE); NITRITE,URINE NEGATIVE (NEGATIVE); PROTEIN,URINE DIPSTICK 2+ (NEGATIVE)
[2020-06-26 16:49] LABS: BILIRUBIN,URINE NEGATIVE (NEGATIVE); KETONES,URINE 2+ (NEGATIVE); URINE UROBILINOGEN 0.2 mg/dL (0.2 - 1)
[2020-06-26 16:54] LABS: BACTERIA,URINE MODERATE /HPF
[2020-06-26 16:55] LABS: EPITHELIAL CELLS,URINE FEW /LPF
[2020-06-26 17:47] LABS: CREATINE KINASE MB 3.9 ng/mL (0-5.0)
[2020-06-26] MEDS: PANTOPRAZOLE 40 MG 10ML VIAL IV SCH (17:59)
[2020-06-26] MEDS: SODIUM CHLORIDE 0.9% 1000ML 1,000 ML IV SCH (17:59)
[2020-06-26] MEDS: CEFTRIAXONE SOD 1 GM/NS 50 ML 50 ML IV SCH (17:59)
--- NOTE | 2020-06-26 19:00 | NUR ---
RECEIVED PATIENT IN BEDSIDE SHIFT REPORT. PATIENT RESTING IN BED AT THIS TIME, PAIN 04/11, WILL MEDICATE. NS RUNNING AT 100 ML/HR TO L AC. BED LOCKED IN LOWEST POSITION, SIDE RAILS UPX2, CALL LIGHT IN REACH.
[2020-06-26] MEDS: MORPHINE SULFATE 2 MG/ML SYR 1ML IV PRN (19:51)
[2020-06-26] MEDS: SIMVASTATIN 40 MG TAB PO SCH (21:58)
[2020-06-26] MEDS: SUCRALFATE 1 GM/10 ML SUSP NG SCH (21:58)
--- NOTE | 2020-06-26 22:35 | NUR ---
SPOKE WITH MD BOO ABOUT SODIUM RESULTS. CHANGE NS TO 75ML/HR, REPEAT LABS IN AM, CALL HIM WITH RESULTS AT 0630.
[2020-06-27] VITALS (7 sets, daily range): BP systolic 126–169; BP diastolic 54–72
--- NOTE | 2020-06-27 01:32 | History and Physical ---
CHIEF COMPLAINT: Abdominal pain. HISTORY OF PRESENT ILLNESS: This is a 80-year-old female, who was just recently discharged after having some viral gastroenteritis secondary to underlying food poisoning, now presents with complaints of abdominal pain and right-sided flank pain. The patient was initially admitted by the ER doctor for underlying chest pain, but the patient never reports any chest pain. In fact, Cardiology evaluated this morning and stated there was no evidence of any chest pain. During my interview, the patient reports epigastric abdominal pain that radiated to the right flank area. This has been ongoing for the last 3 days. She also has associated nausea, vomiting, underlying dehydration, decreased oral intake. The patient was seen and evaluated at bedside on the medical floor with the nursing staff present throughout the entire conversation. Currently, she is doing well with no other issues at this time. She still has some pain and a CT renal stone protocol has been ordered. Standard CT abdomen and pelvis showed no evidence of any acute findings. REVIEW OF SYSTEMS: Pertinent positives: Abdominal pain, flank pain, decreased oral intake, nausea, vomiting. The rest of 14-point review of systems have been reviewed with the patient and are negative. ALLERGIES: PENICILLIN. HOME MEDICATIONS: 1. Metformin. 2. Omeprazole. 3. Amlodipine. 4. Losartan. 5. Protonix. 6. Simvastatin. PAST MEDICAL HISTORY: Hyperlipidemia, acid reflux, hypertension, type 2 diabetes. PAST SURGICAL HISTORY: Reports none. FAMILY HISTORY: Hypertension and diabetes. SOCIAL HISTORY: No drugs. No alcohol. Does not smoke. Good social support. PHYSICAL EXAMINATION: VITAL SIGNS: Temperature is 99.2, pulse 79, respiratory rate 20, blood pressure 124/44, pulse ox 98% on room air. GENERAL: Not in acute distress. Alert and oriented x3. Cooperative on examination. HEENT: Head; normocephalic, atraumatic. Eyes; pupils are equal, round, and reactive to light bilaterally. Extraocular movements intact bilaterally. Throat; no evidence of erythema or exudates in the posterior pharynx. Has poor dentition. NECK: Supple. Good range of motion. PULMONARY: Clear to auscultation bilaterally. No wheezing, no rales, no rhonchi, no crackles appreciated. CARDIOVASCULAR: Positive S1 and S2. No murmurs, rubs, or gallops appreciated. ABDOMEN: Soft, nondistended, and nontender to palpation. Bowel sounds present. MUSCULOSKELETAL: Strength is 5/5 throughout. No evidence of any muscle deficits on examination. No weakness appreciated. NEUROLOGIC: Cranial nerve II through XII grossly intact. No evidence of any neurological deficits on exam. SKIN: Intact. Warm to touch. Good cap refill. PSYCHIATRIC: Normal affect and mood. EXTREMITIES: No edema. Good range of motion throughout. LABORATORY FINDINGS: Show white count 7.4, hemoglobin 12, hematocrit 35, platelets of 348. Chemistry; sodium on admission was 122, then 124, now 122, potassium is 4.2, chloride 88, bicarb 25, anion gap of 15, BUN is 6, creatinine 0.83, glucose is 108, calcium is 9.3. LFTs within normal range. Troponins were negative. Albumin was 3.9, lipase is 6. Urinalysis 6-10 rbc's, none wbc's, moderate bacteria, 2+ ketones, negative nitrite, 2+ protein. SEROLOGY: Coronavirus still pending. MICROBIOLOGY: Urine cultures are pending. IMAGING STUDIES: Chest x-ray shows no acute thoracic radiographic abnormality. CT abdomen and pelvis shows no acute abdominal pelvic process, hepatic steatosis, colonic diverticulosis without evidence of acute diverticulitis. CT abdomen and pelvis renal stone protocol shows no acute findings in the abdomen or pelvis. Specifically no renal calculi or hydronephrosis. There is diverticulosis, but no evidence of any CT evidence of diverticulitis. No evidence of any diverticulitis or any enteritis. IMPRESSION: 1. Epigastric abdominal pain. 2. Right-sided flank pain. 3. Nausea, vomiting, dehydration. 4. Hypertension. 5. Type 2 diabetes. 6. Hyponatremia. PLAN: At this time, I had 2 CT abdomen and pelvis performed, one was a CT abdomen and pelvis regular test showed no acute findings. A CT renal stone protocol also shows no evidence of any kind of renal stone that is leading to the flank pain. Her UA seems to be negative. I did apply IV antibiotics for her. I did consult with GI. IV fluids. Pain control. Clear liquid diet. I will go ahead and increase this normal saline to 100 mL/h. Get a repeat sodium level this evening at 2200 hours and for them to call me with the results. Put on Lovenox for DVT prophylaxis. Continue same plan of care and monitor very closely. Await GI recommendations and management. MD ELO Hagen/TANA /[id number]
[2020-06-27 04:54] LABS: BASOPHILS % 0.6 % (0.0-1.0); EOSINOPHILS # (AUTO) 0.5 (0.0-0.4); EOSINOPHILS % 7.2 % (0.0-6.0); HEMATOCRIT 34.3 % (34.2-44.1); HEMOGLOBIN 11.4 g/dL (12.0-16.0); LYMPHOCYTES # (AUTO) 1.9 (1.0-3.2); LYMPHOCYTES % 27.1 % (18.0-39.1); MEAN CORPUSCULAR HEMOGLOBIN 28.2 pg (28-32); MEAN CORPUSCULAR HGB CONC 33.2 g/dL (31-35); MEAN CORPUSCULAR VOLUME 84.9 fL (81-99); MONOCYTES # (AUTO) 0.7 (0.2-0.8); MONOCYTES % 9.1 % (4.4-11.3); NEUTROPHILS % 55.7 % (38.7-80.0); PLATELET COUNT 311 x10e3/uL (140-360); RED BLOOD COUNT 4.04 x10e6/uL (3.6-5.1); RED CELL DISTRIBUTION WIDTH 13.1 % (11.7-14.4)
[2020-06-27] MEDS: SODIUM CHLORIDE 0.9% 1000ML 1,000 ML IV SCH ×2 (05:08→23:45)
[2020-06-27 05:13] LABS: ANION GAP 14.3 mmol/L (8-16); BLOOD UREA NITROGEN 8 mg/dL (7-26); BUN/CREATININE RATIO 9 (6-25); CALCIUM 8.9 mg/dL (8.4-10.2); CARBON DIOXIDE 24 mmol/L (22-29); CHLORIDE 95 mmol/L (98-107); CREATININE, SERUM 0.87 mg/dL (0.57-1.11); EST GLOMERULAR FILTRATION RATE > 60 ML/MIN (60-); GLUCOSE 97 mg/dL (74-118); POTASSIUM 4.3 mmol/L (3.5-5.1); SODIUM 129 mmol/L (136-145)
--- NOTE | 2020-06-27 07:00 | NUR ---
SPOKE WITH MD BOO ABOUT SODIUM RESULTS. ORDERS TO STOP IV FLUIDS AT THIS TIME.
--- NOTE | 2020-06-27 07:00 | NUR ---
RECEIVED PATIENT RESTING IN BED NO S/S OF DISTRESS. BED LOW, WHEELS LOCKED, SIDE RAILS X2. CALL LIGHT IN REACH WILL CONTINUE TO MONITOR PATIENT.
[2020-06-27] MEDS: SUCRALFATE 1 GM/10 ML SUSP NG SCH ×4 (07:30→20:27)
[2020-06-27] MEDS: PANTOPRAZOLE 40 MG 10ML VIAL IV SCH ×2 (08:41→18:28)
[2020-06-27] MEDS: PANTOPRAZOLE SOD 40 MG TABEC PO SCH (08:41)
[2020-06-27] MEDS ORDERED: ASPIRIN 325 MG TAB PO SCH (09:00)
--- NOTE | 2020-06-27 09:02 | Diagnostic Imaging Report ---
EXAM: Right upper quadrant abdominal ultrasound INDICATION: Right upper quadrant pain COMPARISON: CT abdomen and pelvis of 06/26/2020 TECHNIQUE: Transverse and longitudinal images of the right upper quadrant abdomen were obtained FINDINGS: Liver: Size: 12.9 cm in the right midclavicular line, normal Appearance: Normal echogenicity, smooth contour Mass: No focal masses Gallbladder: No gallbladder distension, pericholecystic fluid, wall thickening, stone, or reported sonographic Rowe's sign. Gallbladder wall measures 2 mm. Bile Ducts: Intrahepatic Ducts: No dilatation Extrahepatic Ducts: Common bile duct measures 5 mm Pancreas: Visualized portions of the pancreatic head, neck and proximal body are normal. Kidney: The right kidney measures 10.2 cm without evidence of hydronephrosis or stone. Vessels: Aorta: Visualized portions are normal Inferior Vena Cava: Visualized portions are normal Main Portal Vein: 0.7 cm, normal size with hepatopetal flow. Free Fluid: No ascites or pleural effusion IMPRESSION: No sonographic evidence of cholelithiasis or cholecystitis. Signed by: Su Godinez MD on 06/27/2020 8:59 AM
--- NOTE | 2020-06-27 11:22 | NUR ---
PATIENT OFF UNIT FOR EGD.
--- NOTE | 2020-06-27 13:25 | NUR ---
PATIENT BACK FROM EGD IN STABLE CONDITION.
--- NOTE | 2020-06-27 13:36 | Operative Report ---
DATE OF PROCEDURE: 06/27/2020 SURGEON: Troy Ochoa MD PROCEDURE: EGD with polypectomy and biopsies. INDICATIONS FOR EGD: Upper abdominal pain. MEDICATIONS: The patient was done under MAC, please see anesthesiologist's note. PROCEDURE IN DETAIL: With the patient in the left lateral decubitus position, the flexible fiberoptic Olympus gastroscope was introduced into the esophagus under direct visualization without any difficulty. There was some patchy erythema noted in distal esophagus. Minute tongues of velvety red mucosa were noted to extend proximally from the GE junction and biopsies were obtained to rule out Rai. The scope was then advanced with ease into the stomach traversing a small hiatal hernia. Mucosa overlying the antrum and the body revealed some patchy erythema and low-grade to moderate edema, and biopsies were obtained and sent to stain for H. pylori. Two minute hyperplastic-appearing polyps were noted in the body of the stomach and those were partially excised with the cold biopsy forceps. Pylorus was of normal contour and shape, was intubated with ease and the scope was advanced all the way to the second portion of the duodenum. The scope was then withdrawn slowly, mucosa overlying the proximal second portion and the duodenal bulb appeared to be within normal limits. The scope was then withdrawn back into the stomach and retroflexed, and mucosa overlying the fundus and the cardia appeared to be within normal limits. The scope was then straightened out, it was subsequently withdrawn, and the patient tolerated the procedure well. IMPRESSION: 1. Distal esophagitis, mild. 2. Rule out Rai esophagus. 3. Small hiatal hernia. 4. Gastritis, biopsied, biopsies sent to stain for Helicobacter pylori. 5. Gastric polyps, hyperplastic-appearing, body, partially excised with cold biopsy forceps. PLAN: Follow up histology. Findings do not necessarily explain the patient's upper abdominal pain. We will proceed with HIDA scan with ejection fraction. Troy Ochoa MD [facility]/MODL /[id number] cc: Austen Fernando MD
[2020-06-27] MEDS: CEFTRIAXONE SOD 1 GM/NS 50 ML 50 ML IV SCH (13:46)
--- NOTE | 2020-06-27 16:00 | NUR ---
PATIENT OFF UNIT FOR HIDA SCAN.
--- NOTE | 2020-06-27 17:52 | NUR ---
PATIENT BACK FROM HIDA SCAN. NO S/S OF DISTRESS. CALL LIGHT IN REACH WILL CONTINUE TO MONITOR PATIENT.
[2020-06-27] MEDS: LOSARTAN POTASSIUM 100 MG TAB PO SCH (18:27)
[2020-06-27] MEDS: AMLODIPINE BESYLATE 10 MG TAB PO SCH (18:28)
[2020-06-27] MEDS: ENOXAPARIN SOD INJ 40 MG/0.4 ML SYR SC SCH (18:28)
--- NOTE | 2020-06-27 18:33 | Diagnostic Imaging Report ---
Hepatobiliary Scan with Gallbladder Ejection Fraction Clinical information: Abdominal pain Technique: Following intravenous administration of 6.6 millicuries of Tc-99m mebrofenin, dynamic images of the abdomen in the anterior projection were obtained through 60 minutes. Sincalide (CCK analog) 1.5 micrograms was administered intravenously over 30 minutes with additional imaging for determination of gallbladder ejection fraction. Discussion: Perfusion of the liver is normal. Extraction of tracer by the liver parenchyma is normal. Tracer appears promptly within the biliary tract. The gallbladder begins to fill by 15 minutes post injection of tracer and fills adequately. Tracer is seen in the small bowel by 38 minutes. The gallbladder ejection fraction with sincalide is 6% (normal greater than 40%). Impression: 1. Filling of the gallbladder excludes acute cystic duct obstruction/acute cholecystitis. 2. The decreased gallbladder ejection fraction of 6% supports the clinical diagnosis of chronic cholecystitis/gallbladder dyskinesia. Signed by: Dr. Alondra Nuñez M.D. on 06/27/2020 6:30 PM
--- NOTE | 2020-06-27 18:55 | NUR ---
Bedside shift report received from morning nurse. Pt alert and oriented to name, lying in bed HOB 45 degrees. Denies pain at this time. Call light within reach.
[2020-06-27] MEDS ORDERED: MIDAZOLAM HCL 2 MG/2 ML VIAL ONE (19:05)
[2020-06-27] MEDS ORDERED: FENTANYL CITRATE/PF 100MCG/2 ML INJ ONE (19:05)
[2020-06-27] MEDS ORDERED: KETAMINE HCL INJ 50 MG/ML 10 ML VIAL ONE (19:05)
--- NOTE | 2020-06-27 19:15 | NUR ---
Results of HIDA called to Dr. Rafa Ochoa as requested, no further orders.
[2020-06-27] MEDS ORDERED: LIDOCAINE HCL 2% LOCAL INJ 5 ML SDV VIAL INJ ONE (19:53)
[2020-06-27] MEDS ORDERED: PROPOFOL IV EMULSION 10 MG/ML 20 ML VIAL ONE (19:53)
[2020-06-27] MEDS: SIMVASTATIN 40 MG TAB PO SCH (20:27)
[2020-06-27] MEDS: ASPIRIN 81 MG CHEW TAB PO SCH (20:27)
--- NOTE | 2020-06-27 22:37 | Progress Note ---
DATE: 06/27/2020 Cardiology Progress Note SUBJECTIVE: Ms. Avila denies any complaints. OBJECTIVE: VITAL SIGNS: Temperature 99.5, heart rate 75, blood pressure 120/46, respiratory rate 17, and O2 saturation 97%. GENERAL: In no acute distress. Alert. NECK: No JVD. CHEST: Clear to auscultation. CARDIOVASCULAR: Regular rate and rhythm. Normal S1 and S2. ABDOMEN: Soft. Mild discomfort to the epigastric right upper quadrant area without rebound or guarding. EXTREMITIES: No edema. Warm extremities. CARDIOVASCULAR MEDICATIONS: Reviewed. Amlodipine 10 mg daily, Lovenox 40 mg subcutaneous daily, aspirin 81 mg daily, simvastatin 40 mg at bedtime, and losartan 100 mg daily. STUDIES: Reviewed. Sodium 129, potassium 4.3, chloride 95, bicarbonate 24, BUN 8, creatinine 0.87, and glucose 97. White blood cells 7.1, hemoglobin 11.4, and platelets 311. AST 16, ALT 16, and alkaline phosphatase 82. ASSESSMENT AND PLAN: A 80-year-old woman presents with atypical chest pain, hyponatremia, anemia, hypertension, dyslipidemia, and epigastric/right upper quadrant discomfort. RECOMMEND: GI evaluation underway. The patient is status post EGD. Biliary tract disease evaluation underway. Overall, symptomatically better. Serial cardiac enzymes negative. Echocardiogram with preserved left ventricular systolic function. Continue current cardiovascular medications. MD KingV/SHALONDAL /[id number]
[2020-06-28] VITALS (11 sets, daily range): BP systolic 133–174; BP diastolic 59–87
--- NOTE | 2020-06-28 00:42 | Progress Note ---
DATE: 06/27/2020 Medicine Progress Note SUBJECTIVE: The patient reports doing much better. No nausea, no vomiting, no abdominal pain. She is doing much better today, she reports. She is not on any diet and now, she is scheduled for a HIDA scan as well as EGD scheduled. PHYSICAL EXAMINATION: VITAL SIGNS: Temperature is 97.8, pulse 73, respiratory rate is 18, blood pressure 126/54, pulse ox 99% on room air. GENERAL: Not in acute distress. Alert and oriented x3. Cooperative on examination. HEENT: Head; normocephalic, atraumatic. Eyes; pupils are equal, round, and reactive to light bilaterally. Extraocular movements intact bilaterally. Throat; no evidence of erythema or exudates in the posterior pharynx. Has poor dentition. NECK: Supple. Good range of motion. PULMONARY: Clear to auscultation bilaterally. No wheezing, rales, or rhonchi. No crackles appreciated. CARDIOVASCULAR: Positive S1, S2. No murmurs, rubs, or gallops appreciated. ABDOMEN: Soft, nondistended, and nontender to palpation. Bowel sounds present. MUSCULOSKELETAL: Strength is 5/5 throughout. No evidence of any muscle deficits on examination. No weakness appreciated. NEUROLOGICAL: Cranial nerves II through XII grossly intact. No evidence of any neurological deficits on exam. SKIN: Intact. Warm to touch. Good cap refill. PSYCHIATRIC: Normal affect and mood. EXTREMITIES: No edema. Good range of motion throughout. LABORATORY DATA: Show white count 7, hemoglobin 11, hematocrit 34, platelets of 311. Chemistry reviewed shows sodium of 129, potassium 4.3, chloride 95, bicarb 24, anion gap of 14, BUN of 8 and creatinine 0.87, glucose 97. Microbiology, none. IMAGING STUDIES: HIDA scan filling of the gallbladder excludes acute cystic duct obstruction, acute cholecystitis, chronic. IMPRESSION: 1. Epigastric abdominal pain likely due to biliary dyskinesia. 2. Nausea, vomiting, dehydration-resolved. 3. Hypertension. 4. Type 2 diabetes. 5. Hyponatremia. 6. Atypical chest pain. PLAN: At this time, HIDA scan consisting with biliary dyskinesia. General Surgery was consulted. She may be scheduled for EGD per GI. No cardiac workup is needed according to Cardiology. Clear liquid diet. Initiate IV fluids. Get a.m. labs. Lovenox for DVT prophylaxis. MD ELO Hagen/TANA /[id number]
--- NOTE | 2020-06-28 06:40 | NUR ---
Informed Dr. Nehemiah Marks of consult for abdominal pain and abnormal HIDA scan, will visit Patient later today.
[2020-06-28 07:13] LABS: BASOPHILS % 0.5 % (0.0-1.0); EOSINOPHILS # (AUTO) 0.6 (0.0-0.4); EOSINOPHILS % 8.4 % (0.0-6.0); HEMATOCRIT 35.3 % (34.2-44.1); HEMOGLOBIN 11.7 g/dL (12.0-16.0); LYMPHOCYTES # (AUTO) 1.4 (1.0-3.2); LYMPHOCYTES % 20.3 % (18.0-39.1); MEAN CORPUSCULAR HGB CONC 33.1 g/dL (31-35); MEAN CORPUSCULAR VOLUME 84.4 fL (81-99); MONOCYTES # (AUTO) 0.6 (0.2-0.8); MONOCYTES % 8.7 % (4.4-11.3); NEUTROPHILS # (AUTO) 4.1 (2.1-6.9); NEUTROPHILS % 61.9 % (38.7-80.0); PLATELET COUNT 326 x10e3/uL (140-360); RED BLOOD COUNT 4.18 x10e6/uL (3.6-5.1); RED CELL DISTRIBUTION WIDTH 13.3 % (11.7-14.4)
[2020-06-28 07:29] LABS: ANION GAP 13.9 mmol/L (8-16); BLOOD UREA NITROGEN 9 mg/dL (7-26); BUN/CREATININE RATIO 11 (6-25); CALCIUM 8.7 mg/dL (8.4-10.2); CARBON DIOXIDE 24 mmol/L (22-29); CHLORIDE 99 mmol/L (98-107); CREATININE, SERUM 0.79 mg/dL (0.57-1.11); EST GLOMERULAR FILTRATION RATE > 60 ML/MIN (60-); GLUCOSE 103 mg/dL (74-118); POTASSIUM 3.9 mmol/L (3.5-5.1); SODIUM 133 mmol/L (136-145)
[2020-06-28] MEDS: PANTOPRAZOLE 40 MG 10ML VIAL IV SCH ×2 (08:06→16:34)
[2020-06-28] MEDS: LOSARTAN POTASSIUM 100 MG TAB PO SCH (08:06)
[2020-06-28] MEDS: ASPIRIN 81 MG CHEW TAB PO SCH (08:06)
[2020-06-28] MEDS: AMLODIPINE BESYLATE 10 MG TAB PO SCH (08:06)
[2020-06-28] MEDS: SUCRALFATE 1 GM/10 ML SUSP NG SCH ×4 (08:06→20:25)
[2020-06-28] MEDS: PANTOPRAZOLE SOD 40 MG TABEC PO SCH (08:06)
[2020-06-28] MEDS: SODIUM CHLORIDE 0.9% 1000ML 1,000 ML IV SCH ×2 (12:06→21:40)
[2020-06-28] MEDS: CEFTRIAXONE SOD 1 GM/NS 50 ML 50 ML IV SCH (14:22)
[2020-06-28] MEDS: METOPROLOL SUCCINATE 25 MG TAB XL PO SCH (14:41)
--- NOTE | 2020-06-28 15:01 | Progress Note ---
DATE: 06/28/2020 Cardiology Progress Note SUBJECTIVE: Right flank discomfort. Denies chest pain. Denies shortness of breath. OBJECTIVE: VITAL SIGNS: Temperature 97.5, heart rate 80, respiratory rate 19, blood pressure 163/82, O2 saturation 99% on room air. GENERAL: No acute distress, alert. NECK: No JVD. CHEST: Clear to auscultation. CARDIOVASCULAR: Regular rate and rhythm. Normal S1 and S2. No S3 or S4. ABDOMEN: Soft. Bowel sounds positive. EXTREMITIES: No edema. Warm distal extremities. CARDIOVASCULAR MEDICATIONS: Aspirin 81 mg daily, losartan 100 mg daily, amlodipine 10 mg daily, simvastatin 40 mg at bedtime, on ceftriaxone antibiotics. LABORATORY DATA: Studies reviewed. Sodium 133, potassium 3.9, chloride 99, bicarbonate 24, BUN 9, creatinine 0.7, glucose 103, calcium 8.7. White blood cells 6.6, hemoglobin 11.7, platelets 326. Coronavirus nondetected. Telemetry in sinus rhythm. ASSESSMENT AND PLAN: A 80-year-old woman with a history remarkable for hypertension, diabetes, morbid obesity, presents with hyponatremia. Has reported history of prior urinary tract infections. Complains of right flank and right upper quadrant discomfort. On HIDA scan decreased gallbladder ejection fraction of 6% undergoing evaluation by General surgery. Lizet denies exertional symptoms. Her ventricular systolic function is preserved. She does not use insulin for diabetes management and her creatinine is within normal range. Her revised cardiac index for noncardiac surgery estimated to 6%, 30-day mortality, heart attack or cardiac arrest with noncardiac surgery. At this point, no unstable cardiac conditions are identified. Given blood pressure being elevated we will add a beta-gillian for perioperative optimization should surgery be decided upon. For now, continue rest of cardiovascular medications. MD KingV/MODJose /[id number]
[2020-06-28] MEDS: ENOXAPARIN SOD INJ 40 MG/0.4 ML SYR SC SCH (16:34)
--- NOTE | 2020-06-28 19:10 | NUR ---
RECEIVED REPORT FROM PREVIOUS NURSE. CALL LIGHT WITHIN REACH. PATIENT IN BED. Addendum: 06/28/20 at 2301 by Maude Srivastava RN PATIENT IN THE CHAIR NOT BED.
[2020-06-28] MEDS: SIMVASTATIN 40 MG TAB PO SCH (20:25)
--- NOTE | 2020-06-28 23:40 | NUR ---
DR Alysia COPELAND VISITED THE PATIENT AND THE PATIENT HAD RIGHT UPPER ABDOMINAL DURING PALPATION. DR. Alysia COPELAND NOTIFIED HOW THE PATIENT WANTS TO HAVE PUDDING AND APPLE SAUCE. DR. Alysia COPELAND SAID TO GIVE HER A SANDWICH AND SEE IF SHE HAS ANY PAIN OR NAUSEA.
[2020-06-29] VITALS (8 sets, daily range): BP systolic 136–160; BP diastolic 53–78
--- NOTE | 2020-06-29 00:52 | Progress Note ---
DATE: 06/28/2020 Medicine Progress Note SUBJECTIVE: The patient is doing well. She is on a clear liquid diet, wants her diet advanced. She reports very minimal pain. She underwent EGD yesterday. PHYSICAL EXAMINATION: VITAL SIGNS: Temperature is 98.3, pulse 62, respiratory rate is 18, blood pressure 114/60, pulse ox 96% on room air. GENERAL: Not in acute distress. Alert and oriented x3. Cooperative on examination. HEENT: Head; normocephalic, atraumatic. Eyes; pupils are equal, round, and reactive to light bilaterally. Extraocular movements intact bilaterally. Throat; no evidence of erythema or exudates in the posterior pharynx. Has poor dentition. NECK: Supple. Good range of motion. PULMONARY: Clear to auscultation bilaterally. No wheezing, no rales, no rhonchi, no crackles appreciated. CARDIOVASCULAR: Positive S1 and S2. No murmurs, rubs, or gallops appreciated. ABDOMEN: Soft, nondistended, and nontender to palpation. Bowel sounds present. MUSCULOSKELETAL: Strength is 5/5 throughout. No evidence of any muscle deficits on examination. No weakness appreciated. NEUROLOGIC: Cranial nerve II through XII grossly intact. No evidence of any neurological deficits on exam. LABORATORY FINDINGS: Show white count 6.6, hemoglobin 11, hematocrit 35, platelets of 226. Chemistry; sodium 132, potassium 3.9, chloride 99, bicarb 24, anion gap of 30, BUN 7, creatinine 0.79, glucose 103, calcium is 8.7. Coronavirus not detected. MICROBIOLOGY: None. IMAGING STUDIES: Reviewed. IMPRESSION: 1. Epigastric abdominal pain, underlying gastritis and esophagitis. 2. Biliary dyskinesia. 3. Nausea, vomiting, and dehydration. 4. Hypertension. 5. Type 2 diabetes. 6. Hyponatremia-resolved. 7. Atypical chest pain. PLAN: At this time, EGD report shows distal esophagitis, small hiatal hernia, gastritis and gastric polyp performed. The patient is doing well. She is on Protonix and Carafate. General surgery consulted for biliary dyskinesia. I am not sure about her plan. Get a.m. labs. Clear liquid diet advance as tolerated. Lovenox for DVT prophylaxis. MD ELO Hagen/SHALONDAL /[id number]
[2020-06-29 04:46] LABS: BASOPHILS # (AUTO) 0.1 (0.0-0.1); BASOPHILS % 0.8 % (0.0-1.0); EOSINOPHILS # (AUTO) 0.5 (0.0-0.4); EOSINOPHILS % 7.5 % (0.0-6.0); HEMATOCRIT 34.6 % (34.2-44.1); HEMOGLOBIN 11.5 g/dL (12.0-16.0); LYMPHOCYTES % 30.4 % (18.0-39.1); MEAN CORPUSCULAR HGB CONC 33.2 g/dL (31-35); MEAN CORPUSCULAR VOLUME 84.2 fL (81-99); MONOCYTES # (AUTO) 0.5 (0.2-0.8); NEUTROPHILS # (AUTO) 3.5 (2.1-6.9); PLATELET COUNT 330 x10e3/uL (140-360); RED BLOOD COUNT 4.11 x10e6/uL (3.6-5.1); RED CELL DISTRIBUTION WIDTH 13.4 % (11.7-14.4)
[2020-06-29 05:02] LABS: ANION GAP 14.9 mmol/L (8-16); BLOOD UREA NITROGEN 6 mg/dL (7-26); BUN/CREATININE RATIO 8 (6-25); CALCIUM 8.7 mg/dL (8.4-10.2); CARBON DIOXIDE 25 mmol/L (22-29); CHLORIDE 100 mmol/L (98-107); CREATININE, SERUM 0.71 mg/dL (0.57-1.11); EST GLOMERULAR FILTRATION RATE > 60 ML/MIN (60-); GLUCOSE 97 mg/dL (74-118); POTASSIUM 3.9 mmol/L (3.5-5.1); SODIUM 136 mmol/L (136-145)
--- NOTE | 2020-06-29 07:05 | NUR ---
GAVE BEDSIDE SHIFT REPORT TO ONCOMING NURSE. PATIENT IN BED. CALL LIGHT WITHIN REACH. HOURLY ROUNDING PERFORMED.
[2020-06-29] MEDS ORDERED: ONDANSETRON HCL 4 MG ORAL DISINTEGRATING TAB PO PRN (08:00)
[2020-06-29] MEDS: AMLODIPINE BESYLATE 10 MG TAB PO SCH (08:59)
[2020-06-29] MEDS: LOSARTAN POTASSIUM 100 MG TAB PO SCH (08:59)
[2020-06-29] MEDS: METOPROLOL SUCCINATE 25 MG TAB XL PO SCH (08:59)
[2020-06-29] MEDS: PANTOPRAZOLE SOD 40 MG TABEC PO SCH (09:00)
[2020-06-29] MEDS: ASPIRIN 81 MG CHEW TAB PO SCH (09:00)
[2020-06-29] MEDS: SUCRALFATE 1 GM/10 ML SUSP NG SCH ×4 (09:00→21:04)
[2020-06-29] MEDS: CEFTRIAXONE SOD 1 GM/NS 50 ML 50 ML IV SCH (14:39)
--- NOTE | 2020-06-29 15:32 | NUR ---
REC'D PHONE CALL FROM DISCHARGE DWIGHT MOTLEY [phone] INQUIRING ABOUT DC NEEDS FOR ANY NEEDS UPON DC CONTACT HER
[2020-06-29] MEDS: SODIUM CHLORIDE 0.9% 1000ML 1,000 ML IV SCH (15:33)
[2020-06-29] MEDS: ENOXAPARIN SOD INJ 40 MG/0.4 ML SYR SC SCH (17:46)
[2020-06-29] MEDS: SIMVASTATIN 40 MG TAB PO SCH (21:04)
[2020-06-29] MEDS: MORPHINE SULFATE 2 MG/ML SYR 1ML IV PRN (22:06)
[2020-06-30] VITALS (9 sets, daily range): BP systolic 100–153; BP diastolic 51–86
--- NOTE | 2020-06-30 01:22 | Progress Note ---
DATE: 06/29/2020 Cardiology Progress Note SUBJECTIVE: The right flank discomfort, slightly better. No new complaints. OBJECTIVE: VITAL SIGNS: Temperature 98.7, heart rate 61, respiratory rate 18, blood pressure 136/58, O2 saturation 98% on room air. GENERAL: In no acute distress. Alert. NECK: No JVD. CHEST: Clear to auscultation. CARDIOVASCULAR: Regular rate and rhythm. Normal S1 and S2. ABDOMEN: Soft. EXTREMITIES: No edema. Normothermic extremities. TELEMETRY: In sinus rhythm. ASSESSMENT AND PLAN: A 80-year-old woman with hypertension, diabetes, morbid obesity, presenting with hyponatremia and right flank pain, history of UTIs. HIDA with decreased gallbladder ejection fraction. RECOMMEND: Awaiting further evaluation to response to current conservative therapy. The differential diagnosis includes musculoskeletal etiology and radiculopathy, and gallbladder disease. Also in the differential general surgery has been consulted and is evaluating the patient. The patient has estimated revised cardiac index for noncardiac surgery, estimated at 6% for 30-day mortality, heart attack or cardiac arrest with noncardiac surgery. No unstable cardiac conditions currently identified. Beta-gillian has been added to current regimen. The patient's blood pressure has been observed to improve following this change. Please call with any questions. Milan Ocasio MD AFV/MODL /[id number]
--- NOTE | 2020-06-30 02:57 | Progress Note ---
DATE: 06/29/2020 Medicine Progress Note SUBJECTIVE: The patient is doing much better today. She is on a regular diet. General Surgery recommendations noted. No surgery needed at this time, as the patient is doing very well. PHYSICAL EXAMINATION: VITAL SIGNS: Temperature 98.7, pulse 61, respiratory rate is 18, blood pressure 136/50, and pulse ox 98% on room air. GENERAL: In acute distress alert and oriented x3. Cooperative on examination. HEENT: Normocephalic and atraumatic. Eyes; pupils are equal, round, and reactive to light bilaterally. Extraocular movements intact bilaterally. Throat; no evidence of erythema or exudates in the posterior pharynx. Has poor dentition. NECK: Supple. Good range of motion throughout. PULMONARY: Clear to auscultation bilaterally. No wheezing, rales, or rhonchi. No crackles appreciated cardiovascular positive S1, S2. No gallops. ABDOMEN: Soft, nondistended, nontender to palpation. Bowel sounds present. MUSCULOSKELETAL: Strength is 5/5 throughout. No evidence of any muscle deficits on examination. NEUROLOGIC: Cranial nerves 2 through 12 grossly are intact. LABORATORY FINDINGS: White count 6.5, hemoglobin 11, hematocrit is 34, and platelets of 330. Chemistry reviewed, found to be stable. Urine cultures negative. Nothing new for imaging studies. IMPRESSION: 1. Epigastric abdominal pain, status post EGD, status post gastritis and esophagitis. 2. Positive HIDA scan with biliary dyskinesia-per General Surgery. No surgery is needed. 3. Nausea, vomiting, dehydration-resolved. 4. Hypertension. 5. Type 2 diabetes. 6. Hyponatremia. 7. Atypical chest pain. PLAN: At this time, the patient is doing very well. Continue with Protonix, Carafate. As per General Surgery, the patient does not need surgery at this time, as she is doing clinically well. She is on a regular diet. If she does well, discharge home tomorrow. MD ELO Hagen/MODL /[id number]
[2020-06-30] MEDS: SODIUM CHLORIDE 0.9% 1000ML 1,000 ML IV SCH ×2 (03:09→16:47)
[2020-06-30 05:11] LABS: BASOPHILS # (AUTO) 0.1 (0.0-0.1); BASOPHILS % 0.8 % (0.0-1.0); EOSINOPHILS # (AUTO) 0.7 (0.0-0.4); HEMATOCRIT 36.2 % (34.2-44.1); HEMOGLOBIN 11.7 g/dL (12.0-16.0); LYMPHOCYTES # (AUTO) 2.1 (1.0-3.2); LYMPHOCYTES % 28.3 % (18.0-39.1); MEAN CORPUSCULAR HEMOGLOBIN 28.1 pg (28-32); MEAN CORPUSCULAR HGB CONC 32.3 g/dL (31-35); MONOCYTES # (AUTO) 0.5 (0.2-0.8); NEUTROPHILS # (AUTO) 4.1 (2.1-6.9); NEUTROPHILS % 54.6 % (38.7-80.0); PLATELET COUNT 315 x10e3/uL (140-360); RED BLOOD COUNT 4.16 x10e6/uL (3.6-5.1); RED CELL DISTRIBUTION WIDTH 13.4 % (11.7-14.4)
[2020-06-30 05:29] LABS: ANION GAP 14.2 mmol/L (8-16); BLOOD UREA NITROGEN 6 mg/dL (7-26); BUN/CREATININE RATIO 8 (6-25); CARBON DIOXIDE 26 mmol/L (22-29); CHLORIDE 101 mmol/L (98-107); CREATININE, SERUM 0.73 mg/dL (0.57-1.11); EST GLOMERULAR FILTRATION RATE > 60 ML/MIN (60-); GLUCOSE 101 mg/dL (74-118); POTASSIUM 4.2 mmol/L (3.5-5.1); SODIUM 137 mmol/L (136-145)
[2020-06-30] MEDS: MORPHINE SULFATE 2 MG/ML SYR 1ML IV PRN (08:51)
[2020-06-30] MEDS: SUCRALFATE 1 GM/10 ML SUSP NG SCH ×4 (08:53→20:48)
[2020-06-30] MEDS: PANTOPRAZOLE SOD 40 MG TABEC PO SCH (08:53)
[2020-06-30] MEDS: AMLODIPINE BESYLATE 10 MG TAB PO SCH (08:54)
[2020-06-30] MEDS: LOSARTAN POTASSIUM 100 MG TAB PO SCH (08:54)
[2020-06-30] MEDS: METOPROLOL SUCCINATE 25 MG TAB XL PO SCH (08:54)
[2020-06-30] MEDS: ASPIRIN 81 MG CHEW TAB PO SCH (08:55)
[2020-06-30] MEDS: CEFTRIAXONE SOD 1 GM/NS 50 ML 50 ML IV SCH (14:56)
[2020-06-30] MEDS: ENOXAPARIN SOD INJ 40 MG/0.4 ML SYR SC SCH (16:47)
[2020-06-30] MEDS: SIMVASTATIN 40 MG TAB PO SCH (20:48)
--- NOTE | 2020-06-30 21:45 | Progress Note ---
DATE: Cardiology Progress Note SUBJECTIVE: Ms. Avila has noted some improvement in right flank discomfort. She has no other complaints. She denies chest pain or shortness of breath. OBJECTIVE: VITAL SIGNS: Temperature 98.8, heart rate 77, blood pressure 153/86, respiratory rate 20, and O2 saturation 98%. GENERAL: No acute distress. Alert. NECK: No JVD. CHEST: Clear to auscultation. CARDIOVASCULAR: Regular rate and rhythm. Normal S1, S2. ABDOMEN: Soft. Bowel sounds positive. EXTREMITIES: No edema. CARDIOVASCULAR MEDICATIONS: Reviewed. Losartan, Lovenox, aspirin, simvastatin, metoprolol. STUDIES: Reviewed. Creatinine 0.7. White blood cell 7, hemoglobin 11, and platelets 315. ASSESSMENT AND PLAN: A 80-year-old woman presents with atypical chest pain, right flank pain, hypertension, dyslipidemia, anemia, recommend. Continue current cardiovascular medications. Surgical consultation for gallbladder disease, noted alternative diagnosis being explored. At this point, no additional cardiac evaluation advised. Milan Ocasio MD AFKevin/MODL /[id number]
[2020-07-01 00:20] VITALS: BP 142/57
--- NOTE | 2020-07-01 01:56 | Progress Note ---
DATE: 06/30/2020 Medicine Progress Note SUBJECTIVE: The patient is currently doing very well. No abdominal pain. No nausea, no vomiting. Tolerating diet very well. PHYSICAL EXAMINATION: VITAL SIGNS: Temperature 97.9, pulse 66, respiratory rate is 18, blood pressure is 100/52, saturating 98% on room air. GENERAL: Not in acute distress. Alert and oriented x3. Cooperative on examination. PULMONARY: Clear to auscultation bilaterally. No wheezing, no rales, no rhonchi, no crackles appreciated. CARDIOVASCULAR: Positive S1 and S2. No murmurs, rubs, or gallops appreciated. ABDOMEN: Soft, nondistended, and nontender to palpation. Bowel sounds present. MUSCULOSKELETAL: Strength is 5/5 throughout. No evidence of any muscle deficits on examination. SKIN: Intact. Warm to touch. Good cap refill. PSYCHIATRIC: Normal affect and mood. LABORATORY FINDINGS: Show white count 7.5, hemoglobin 11, hematocrit is 36, platelets of 315. Chemistry is essentially stable. Urinalysis negative. MICROBIOLOGY: Urine cultures were negative, found to be a mixed jt. IMAGING STUDIES: Nothing new. IMPRESSION: 1. Epigastric abdominal pain, status post EGD with status post gastritis and esophagitis. 2. Positive HIDA scan with biliary dyskinesia-currently asymptomatic. No further workup needed. 3. Nausea, vomiting, dehydration-resolved. 4. Hypertension. 5. Type 2 diabetes. 6. Hyponatremia-resolved. 7. Atypical chest pain. PLAN: At this time, continue with Protonix care. She is on a regular diet. She is improving well. No surgery per General Surgery. GI, no further workup needed. As per Cardiology also, no further workup. Plan of discharge home tomorrow. MD ELO Hagen/MODL /[id number]
[2020-07-01 04:00] VITALS: BP 149/53
[2020-07-01] MEDS: SODIUM CHLORIDE 0.9% 1000ML 1,000 ML IV SCH (07:51)
[2020-07-01] MEDS: PANTOPRAZOLE SOD 40 MG TABEC PO SCH (07:51)
[2020-07-01] MEDS: SUCRALFATE 1 GM/10 ML SUSP NG SCH ×3 (07:51→16:59)
[2020-07-01] MEDS: ASPIRIN 81 MG CHEW TAB PO SCH (08:41)
[2020-07-01] MEDS: LOSARTAN POTASSIUM 100 MG TAB PO SCH (08:42)
[2020-07-01] MEDS: AMLODIPINE BESYLATE 10 MG TAB PO SCH (08:42)
[2020-07-01] MEDS: METOPROLOL SUCCINATE 25 MG TAB XL PO SCH (08:43)
[2020-07-01 08:49] VITALS: BP 149/53
[2020-07-01 08:50] VITALS: BP 148/61
[2020-07-01 12:32] VITALS: BP 138/85
[2020-07-01] MEDS: CEFTRIAXONE SOD 1 GM/NS 50 ML 50 ML IV SCH (14:41)
[2020-07-01 16:46] VITALS: BP 150/67
[2020-07-01] MEDS: ENOXAPARIN SOD INJ 40 MG/0.4 ML SYR SC SCH (16:59)
[2020-07-01] MEDS ORDERED: SUCRALFATE1 GM PO (17:28)
[2020-07-01] MEDS ORDERED: METOPROLOL SUCC25 MG PO (17:30)
--- NOTE | 2020-07-01 20:39 | Progress Note ---
DATE: 07/01/2020 Cardiology Progress Note SUBJECTIVE: Ms. Avila presents with chest pain, shortness of breath, abdominal discomfort has improved. OBJECTIVE: VITAL SIGNS: Temperature 98.4, heart rate 72, blood pressure 138/85, respiratory rate 18, O2 saturation 96%. GENERAL: No acute distress. Alert. NECK: No JVD. CHEST: Clear to auscultation. CARDIOVASCULAR: Regular rate and rhythm. Normal S1, S2. ABDOMEN: Soft. Bowel sounds positive. EXTREMITIES: No edema. CARDIOVASCULAR MEDICATIONS: Reviewed. Losartan, Lovenox, aspirin, metoprolol. STUDIES: Reviewed. Sodium 137, potassium 4.2, chloride 101, bicarbonate 26. BUN 6, creatinine 0.7, glucose 101. White blood cells 7.5, hemoglobin 11.7, platelets 315. AST 16, ALT 16, alkaline phosphatase 82. ASSESSMENT AND PLAN: A 80-year-old woman, presents with atypical chest pain and right upper quadrant and flank discomfort, history of hypertension, dyslipidemia, anemia. RECOMMEND: 1. Outpatient followup in 4 to 6 weeks post discharge. 2. Continue current cardiovascular medications. MD DAMIEN Hu/TANA /[id number]
--- NOTE | 2020-07-01 22:24 | Discharge Summary ---
FINAL DISCHARGE DIAGNOSES: 1. Epigastric abdominal pain, status post EGD, showed gastritis and esophagitis. 2. Chronic biliary dyskinesia-outpatient follow with Surgery, currently has no complaints. 3. Nausea, vomiting, dehydration-resolved. 4. Hypertension. 5. Type 2 diabetes. 6. Hyponatremia-resolved. 7. Atypical chest pain. CONSULTANTS: Cardiology, General Surgery. PHYSICAL EXAMINATION: VITAL SIGNS: Temperature is 98.3, pulse 68, respiratory rate is 18, blood pressure 150/67, and pulse ox 98% on room air. LABORATORY FINDINGS: Show white count 7.5, hemoglobin 11, hematocrit 36, and platelets of 315. Chemistry; sodium 137, potassium 4.2, chloride 101, bicarb 26, anion gap of 14, BUN is 6, creatinine is 0.73, calcium is 9. Her LFTs were within normal range. Troponins were all negative. Lipase 6, albumin is 3.9. Urinalysis was negative. SEROLOGY: Coronavirus nondetected. MICROBIOLOGY: Urine culture found to be a contaminant, normal jt. IMAGING STUDIES: Chest x-ray was found to be negative. CT abdomen and pelvis showed no acute abdominopelvic process, hepatic steatosis. Diverticulosis with no evidence of any diverticulitis. CT renal stone protocol shows no evidence of any acute abdomen or pelvis findings. No renal calculi or hydronephrosis. Abdominal ultrasound shows no evidence of cholelithiasis or cholecystitis. HIDA scan shows filling of the gallbladder excludes acute cystic duct obstruction, acute cholecystitis. Decreased gallbladder ejection of 60% reports clinical diagnosis of chronic cholecystitis with gallbladder dyskinesia. HOSPITAL COURSE: This is a 80-year-old female, who comes into the ED with complaints of abdominal pain, nausea, and vomiting. GI was consulted. The patient has several imaging studies. CT abdomen and pelvis, which were negative, but a HIDA scan showed possible concerns for biliary dyskinesia. She also had evidence of hepatic steatosis, but no evidence of cholecystitis. The patient underwent status post EGD, that showed evidence of gastritis and esophagitis. The patient was on Protonix. She was discharged on oral Protonix as well as Carafate. Initial thought on admission by the ER was the patient may have had underlying chest pain, which Cardiology was consulted. Cardiac enzymes were negative. This was atypical chest pain. No further cardiac workup was needed. As for the HIDA scan showing some biliary dyskinesia, General Surgery was consulted. The patient was doing very well. She in fact, she was eating with no complaints after she had her EGD and did not feel the patient needed any surgical intervention at this time. She was advised to follow up in his office in 2 weeks' time in the event if she has any other complaints. The patient was doing well back to baseline with no other complaints. She was cleared for discharge by all consultants. The patient was tolerating regular diet well with no other issues. On the day of discharge, vital signs were stable, labs were reviewed and stable. The patient is seen and evaluated, examined thoroughly on the day of discharge, no other complaints. The patient verbalized understanding and agrees to plan of care to follow up as an outpatient with the primary care physician in 1 week and General Surgery and GI in 2 weeks' time. MEDICATIONS: See med reconciliation form. DISPOSITION: Home. CONDITION: Stable. DIET: Heart healthy. In the event of worsening symptoms, the patient was advised to come back to the ED for further evaluation. Discharge summary took greater than 35 minutes. MD ELO Hagen/TANA /[id number]
== END 2020-07-01 18:16 | disposition home or self-care (01) | DRG 641 ==
LOC: ER 20:02 → ERHOLD 23:03 → MED/SURG 06-26 00:48 → OBSVTOIN 06-27 08:42 → INTOOBSV 06-27 08:42
PROVIDERS: ADMIT Internal Medicine; ATTEND Internal Medicine
PROC: 0DB68ZZ Excision of Stomach, Via Natural or Artificial Opening Endoscopic (ICD-10-PCS; 2020-06-27)
PROC: 0DB78ZX Excision of Stomach, Pylorus, Via Natural or Artificial Opening Endoscopic, Diagnostic (ICD-10-PCS; principal; 2020-06-27 11:30)
DX: E87.1 Hypo-osmolality and hyponatremia (principal); K29.70 Gastritis, unspecified, without bleeding; K20.9 Esophagitis, unspecified; E86.0 Dehydration; E11.9 Type 2 diabetes mellitus without complications; R07.89 Other chest pain; Z11.59 Encounter for screening for other viral diseases; K76.0 Fatty (change of) liver, not elsewhere classified; R07.9 Chest pain, unspecified; E66.01 Morbid (severe) obesity due to excess calories; Z68.32 Body mass index [BMI] 32.0-32.9, adult; E78.5 Hyperlipidemia, unspecified
CPT/HCPCS: 36415; 43239; 71045; 74176; 74177; 76705; 78227; 80048; 80053; 81001; 82550; 82553; 82948; 83690; 83880; 84295; 84484; 85025; 87086; 88305; 88312; 93005; 93306; 96361; 99284; A9537; G0378; J0696; J1650; J2001; J2250; J2270; J2405; J3010; J7030; Q0162; Q9967; U0002